=== PATIENT | female | born 1950 | race Caucasian/White ===

== ENCOUNTER 2019-09-28 09:02 | Outpatient (CLI) | payer MEDICARE, SELFPAY ==
--- NOTE | 2019-09-28 09:26 | MM_ITS ---
WS: [id number] LEFT DIGITAL MAMMOGRAPHY WITH CAD CLINICAL INFORMATION: HX OF BREAST CA;RT MASTECTOMY COMPARISON: September 25, 2018 and 6016 TECHNIQUE: 4 views of the left breast were obtained. FINDINGS: The left breast is composed of heterogeneous fibroglandular density tissue, which can limit the detec tion of small underlying mass lesions. Lucent centered calcifications. Stable postoperative changes l ower inner left breast. Ultrasound is pending. ULTRASOUND BREAST LEFT TECHNIQUE: Ultrasound left breast focused area of concern. CLINICAL INFORMATION: HX OF BREAST CA;RT MASTECTOMY COMPARISON: None. FINDINGS: Ultrasound left breast the 12:00 position. Dense breast tissue seen at the prior surgical scar site. No evidence of underlying pathologic mass or lesion. No lesions to target for biopsy. MM/[place] [id number] IMPRESSION: BI-RADS: 2-Benign FOLLOW UP: 1 Year Follow-up Recommend return to annual diagnostic mammography.
--- NOTE | 2019-09-28 09:52 | US_ITS ---
WS: [id number] LEFT DIGITAL MAMMOGRAPHY WITH CAD CLINICAL INFORMATION: HX OF BREAST CA;RT MASTECTOMY COMPARISON: September 25, 2018 and 6016 TECHNIQUE: 4 views of the left breast were obtained. FINDINGS: The left breast is composed of heterogeneous fibroglandular density tissue, which can limit the detec tion of small underlying mass lesions. Lucent centered calcifications. Stable postoperative changes l ower inner left breast. Ultrasound is pending. ULTRASOUND BREAST LEFT TECHNIQUE: Ultrasound left breast focused area of concern. CLINICAL INFORMATION: HX OF BREAST CA;RT MASTECTOMY COMPARISON: None. FINDINGS: Ultrasound left breast the 12:00 position. Dense breast tissue seen at the prior surgical scar site. No evidence of underlying pathologic mass or lesion. No lesions to target for biopsy. US/US breast LT limited* [id number] IMPRESSION: BI-RADS: 2-Benign FOLLOW UP: 1 Year Follow-up Recommend return to annual diagnostic mammography.
== END 2019-09-28 09:03 | disposition home or self-care (01) ==
LOC: ONCMED 09:06
PROVIDERS: Family Provider Electrodiagnostic Medicine; Visit Provider Internal Medicine Medical Oncology
DX: Z85.3 Personal history of malignant neoplasm of breast (principal); N63.20 Unspecified lump in the left breast, unspecified quadrant
CPT/HCPCS: 76642; 77065

== ENCOUNTER 2019-10-14 15:11 | Outpatient (CLI) | payer MEDICARE, SELFPAY ==
--- NOTE | 2019-10-14 15:18 | CT_ITS ---
WS: [id number] CT HEAD NONCONTRAST HISTORY: ACUTE NONINTRACTABLE HEADACHE TECHNIQUE: Contiguous axial imaging performed through the brain in 2.5 mm imaging. Bone and soft tiss ue windows. Sagittal and coronal reformats reviewed. All CT scans at [facility] use at le ast one of these dose optimization techniques: automated exposure control; mA and/or kV adjustment pe r patient size (includes targeted exams where dose is matched to clinical indication); or iterative r econstruction. DLP: 747.15 mGy.cm COMPARISON: MRI brain 06/08/2018 No acute intracranial hemorrhage, midline shift or mass effect. Mild atrophy and mild chronic ischemic disease. No sulcal effacement. Prior lacunar infarct anterior limb RIGHT internal capsule. Ventricles: Normal size with no hydrocephalus. No inferior displacement of the cerebellar tonsils. Paranasal sinuses: As visualized are clear. Mastoid air cells: Well pneumatized. Calvarium and scalp: Skull is intact with no soft tissue edema or swelling. CT/CT head wo con* [id number] IMPRESSION: 1. No acute intracranial hemorrhage or edema. 2. Mild atrophy and chronic ischemic disease.
== END 2019-10-14 15:12 | disposition home or self-care (01) ==
LOC: RAD 15:15
PROVIDERS: Family Provider Electrodiagnostic Medicine; PCP Nurse Practitioner Family; Visit Provider Nurse Practitioner Family
DX: I67.82 Cerebral ischemia (principal); R51 Headache
CPT/HCPCS: 70450

== ENCOUNTER 2020-02-01 12:13 | Outpatient (CLI) | payer MEDICARE, SELFPAY ==
[2020-02-01 12:56] LABS: Alanine Aminotransferase 21 U/L (0-33); Albumin Level 4.4 g/dL (3.5-5.2); Alkaline Phosphatase 61 IU/L (35-105); Anion Gap 16.9 (5-19); Aspartate Amino Transferase 20 U/L (0-32); Blood Urea Nitrogen 15 mg/dL (8-23); Calcium 9.7 mg/dL (8.5-10.5); Carbon Dioxide 24 mmol/L (22-29); Chloride 103 mmol/L (98-107); Globulin 3.1 g/dL (1.3-4.6); Glomerular Filtration Rate 62.1 mL/min (90-130); Glucose 113 mg/dL (65-115); Osmolality Calculated 287 mOsm/kg (285-295); Potassium 3.9 mmol/L (3.5-5.1); Sodium 140 mmol/L (136-145); Total Bilirubin 0.4 mg/dL (0.15-1.2); Total Protein 7.5 g/dL (6.6-8.7)
[2020-02-01 13:02] LABS: Basophils % 0.4 %; Eosinophils # 0.1 10^3/uL (0.0-0.8); Eosinophils % 1.1 %; Hematocrit 44.3 % (37.0-47.0); Hemoglobin 14.1 g/dL (11.5-15.3); Lymphocytes # 1.7 10^3/uL (0.8-4.8); Lymphocytes % 29.8 %; Mean Corpuscular HGB Conc 31.8 g/dL (30.0-36.0); Mean Corpuscular Hemoglobin 29.2 pg (28.0-34.0); Mean Corpuscular Volume 91.7 fL (81-99); Mean Platelet Volume 9.5 fL (7.4-10.4); Monocytes # 0.7 10^3/uL (0.2-0.9); Monocytes % 11.8 %; Neutrophils # 3.2 10^3/uL (1.8-7.7); Neutrophils % 56.7 %; Nucleated Red Blood Cells % 0 %; Platelet Count 236 10^3/cmm (130-400); Red Blood Count 4.83 10^6/uL (4.1-5.3); Red Cell Distribution Width 12.8 % (12.1-15.1); White Blood Count 5.7 10^3/uL (4.0-10.0)
--- NOTE | 2020-02-02 06:25 | ONC FU_ITS ---
Dr. Mc Patient Follow-Up Note Patient: Kim Carey Unit #: [id number]: 1950 Dicatated By: Booker Mc M.D.Date of Visit:February 01, 2020 Onc Med Follow-up/Prog Note Chief Complaint: Breast cancer. History of Present Illness: This is a 69 year-old woman with a bilateral ductal carcinoma in situ. She had presented in April 1999 with a large mass in the right breast. The initial biopsy showed grade 2-3/3 ductal carcinoma in situ measuring 2.0 x 1.0 cm. She then underwent right modified radical mastectomy. Pathology on the mastectomy showed residual DCIS measuring 4.0 x 3.0 cm with mixed cribriform, solid, and comedo patterns. There was tumor within 0.5 mm of the inked deep margin. There was no invasive cancer identified and there was no involvement in 9 axillary lymph nodes. She did receive postop chest wall radiation because of the close margin. She had a delayed TRAM flap reconstruction. She also took adjuvant Tamoxifen, but she stopped in January 2002 because of side effects. During followup there has been no evidence of recurrence. On her yearly left unilateral mammogram in November 2015, she was noted to have a group of punctate calcifications in the anterior third medial aspect of the breast. These appeared to have increased compared to previous mammograms. With additional views, the calcifications did appear to be suspicious, and biopsy was recommended. A stereotactic needle biopsy of the left breast on 01/06/2016 showed DCIS arising within fibrocystic change with atypical ductal hyperplasia. Microcalcifications were identified, but no invasive carcinoma was identified. On 02/02/2016 she underwent left breast lumpectomy under needle localization. Pathology showed fibrocystic changes with focal ductal hyperplasia and associated mixed adenosis. There was no invasive or intraductal carcinoma identified. The margins of resection were free of any tumor or significant atypia. She was referred to Dr. Andrea, and she subsequent underwent radiation to the left breast which she completed on 05/10/2016 to a total dose of 6000 cGy. She tolerated the treatment well. She has since then been followed on observation/expectant management. She has additional history of benign osteochondroma of the left iliac wing. This has just been monitored with observation and has shown no evidence of progression. Her other medical illnesses include hypertension, hyperlipidemia, COPD, GERD, and irritable bowel syndrome. She has had chronic fatigue and pain which is likely a combination of degenerative disease and fibromyalgia. She also has some chronic anxiety/depression. Her other surgeries include appendectomy, partial hysterectomy, and cervical spine fusion. She has a history of smoking 1 pack of cigarettes daily. Her family history is significant in that her father of melanoma and the brother also was treated for melanoma. There is no history of breast cancer in the family. She is seen for a scheduled visit. Her main complaint is that she has been having pain and swelling in her right knee and right leg. It started about a month ago, but within the past week the pain has gotten bad. She is also been having pain in the right side of her head and she felt pressure on her eyes. She was seen by Dr. Moeller and diagnosed with glaucoma. At that time she was also told that she had shingles. She does not have very much energy, but she is able to do light work. Her appetite is not good. She says she makes herself eat. Her weight is up a couple pounds. She has not had fever. She says she had chills last night. She has occasional hot flashes/sweating. She has had some pressure in the sinus area and she has had sore throat. She sometimes has difficulty swallowing. She does not complain of shortness of breath or cough. She has had some soreness in the left chest area just below the breast. She feels a knot. She occasionally has nausea. Bowel function has been okay. She says her urination has been a little bit slow. She also has pain in the lower back, which is chronic. She has been having numbness in the median nerve distribution of the right hand. Medications: AmLODIPine Besylate 1 Tablet (of 5 mg) Oral daily, Cipro 1 (500 mg) Tablet Oral PRN, Citalopram Hydrobromide 1 Tablet (of 10 mg) Oral at bedtime, Dicyclomine HCl 1 (10 mg) Capsule Oral four times a day, Fish Oil 1 (1200 mg) Capsule Oral daily, Flonase 1 spray(s) (of 50 mcg/act) Suspension Nasal PRN, Gabapentin 1 Capsule (of 100 mg) Oral t.i.d., Isosorbide Dinitrate 1 Tablet (of 30 mg) Oral daily, Levothyroxine Sodium 1 Tablet (of 50 mcg) Oral daily, Metoprolol Succinate ER 1 Tablet (of 50 mg) Tablet SR 24 HR Oral daily, Multivitamin Women 1 Tablet Oral daily, Nitroglycerin Tablet, sublingual Sublingual PRN, Omeprazole 1 (20 mg) Capsule Delayed Release Oral b.i.d., Simvastatin 1 (40 mg) Tablet Oral at bedtime, Ventolin HFA 1 (108 (90 base) mcg/act) Aerosol, solution Inhalation PRN Allergies: Sulfamethoxazole-Trimethoprim Review of Systems: Constitutional - Her energy is low. She does light work in and around the house. Her appetite is good and weight is up a few pounds. No fever or chills. She has hot flashes with sweating. ECOG score is 1, ENMT - She is having sinus congestion/drainage. No mouth sores. Her throat is sore. No difficulty swallowing, Hematologic/Lymphatic - No abnormal bruising or bleeding, Respiratory - No shortness of breath. No cough. No pleuritic pain or hemoptysis, Cardiovascular - She's had some anginal pain today. No palpitations, Gastrointestinal - She's had a new episodes of nausea. No vomiting. No heartburn or acid reflux. No diarrhea or constipation. No blood in the stool or black stools, Genitourinary (F) - No dysuria or hematuria. No urinary frequency. No urgency or incontinence. She has some hesitancy, Musculoskeletal - She is having significant right posterior knee pain, which is new. She also has some lower back pain. She is having frequent cramping in her legs, Integumentary - She recently had a skin spots on her right forehead and scalp, and she states that she was told she had shingles, Neurologic - She has been having headaches. She has occasional dizziness. She has numbness in her right thumb and in her index and middle fingers, Psychiatric - She recently lost her brother so her anxiety and depression is not well controlled with her current dose of citalopram. She does not sleep well. Vital Signs: Performed on February 01, 2020 13:53 Height - 62.00 in Weight - 148.2 lbs (HIGH) BSA - 1.68 sq.m BMI - 27.11 Temperature - 98.6 F Pulse - 73 /min Respiration - 18 /min BP - 162/84 mm(hg) (HIGH) O2 Sat - 98 % Pain - 10 Physical Examination: Constitutional - She looks pretty good generally, Eyes - Sclerae nonicteric. Conjunctivae clear, ENMT - There are no lesions noted in the oral cavity, Hematologic/Lymphatic - No cervical, clavicular, or axillary adenopathy, Respiratory - Lungs are clear, Cardiovascular - Heart rhythm is regular. There is a II/ systolic murmur. There is no gallop or rub noted, Abdomen - Soft and nontender. Liver and spleen are not enlarged. There is no abdominal mass or ascites noted and no inguinal adenopathy, Extremities - No edema. There is no palpable abnormality in the right popliteal area or in the right calf, Integumentary - There is no skin eruption. There are no suspicious skin lesions noted, Neurologic - There are no focal neurologic deficits noted. Lab/Imaging: Test performed on February 01, 2020 12:20 Sodium 140 mmol/L Potassium 3.9 mmol/L Chloride 103 mmol/L CO2 24 mmol/L Anion Gap 16.9 BUN 15 mg/dL Creatinine 0.9 mg/dL Cr Clearance (Est) 62.61 mL/min eGFR 62.1 mL/min Glucose 113 mg/dL Calcium 9.7 mg/dL Protein, Total 7.5 g/dL Albumin 4.4 g/dL Globulin 3.1 g/dL Bilirubin, Total 0.4 mg/dL ALT (SGPT) 21 U/L AST (SGOT) 20 U/L Alkaline Phosphatase 61 IU/L WBC 5.7 10 3/uL RBC 4.83 10 6/uL HGB 14.1 g/dL HCT 44.3 % MCV 91.7 fL MCH 29.2 pg MCHC 31.8 g/dL RDW 12.8 % Platelet Count 236 10 3/cmm MPV 9.5 fL Neutrophils 3.2 10 3/uL Lymphocytes 1.7 10 3/uL Monocytes 0.7 10 3/uL Eosinophils 0.1 10 3/uL Basophils 0.0 10 3/uL Neutrophil % 56.7 % Lymphocyte % 29.8 % Monocyte % 11.8 % Eosinophil % 1.1 % Basophils % 0.4 % Impression: 1. Ductal carcinoma in situ of the left breast. This appears to been a small, mammographically detected lesion. It was evident only in the initial needle biopsy specimen. There was no residual carcinoma identified in the subsequent lumpectomy on 02/02/2016. 2. She was given radiation to the left breast, completed on 05/10/2016 to a total dose of 6000 cGy. 3. She has a history of having undergone right modified radical mastectomy and postoperative radiation in 1998 for a locally advanced ductal carcinoma in situ of the right breast. She subsequently underwent delayed TRAM flap reconstruction, and she also did receive an abbreviated course of adjuvant hormonal therapy with tamoxifen, which she stopped in January 2002 due to side effects. There has been no evidence of recurrence. 4. She has radiographic evidence of benign osteochondroma of the left iliac wing. It has been stable on follow-up. Her other medical illnesses include: 5. Hypertension. 6. Hyperlipidemia. 7. GERD. 8. Irritable bowel syndrome. 9. COPD. 10. Degenerative arthritis. 11. Chronic fatigue and chronic pain felt to be consistent with fibromyalgia. 12. Anxiety/depression. 11. Nicotine dependence (cigarettes). During follow-up she has continued to have multiple complaints, the most significant being fatigue and musculoskeletal pain. Her main complaint recently has been pain in the right popliteal area and right calf. She has also been diagnosed with shingles, but I do not see any residual skin lesions to confirm that. She has developed numbness in the median nerve distribution on the right. She also has been having more anxiety/depression. There appears to be no evidence, though, of recurrence of her breast cancer. Plan: She remains on observation/expectant management for the breast cancer. She will be given a prescription for ropinirole 0.25 mg at bedtime for the leg cramps. She will increase citalopram to 20 mg daily. She will have further evaluation for the right knee/leg pain if that persists. In the meantime, she will be scheduled for nerve conduction studies for the right arm/hand. I will see her again in 6 months, or sooner as needed. Signed By: Booker Mc M.D. <<Signature on File>>
== END 2020-02-01 12:14 | disposition home or self-care (01) ==
PROVIDERS: PCP Nurse Practitioner Family; Visit Provider Internal Medicine Medical Oncology
DX: Z08 Encounter for follow-up examination after completed treatment for malignant neoplasm (principal); Z86.000 Personal history of in-situ neoplasm of breast
CPT/HCPCS: 36415; 80053; 85025; 99214

== ENCOUNTER → 2020-02-08 11:54 | Outpatient (BNVA) | payer MEDICARE, SELFPAY | PROVIDERS: PCP Nurse Practitioner Family; Visit Provider Specialist | DX: G56.01 Carpal tunnel syndrome, right upper limb (principal) | CPT/HCPCS: 95908 ==

== ENCOUNTER → 2020-06-03 09:00 | Outpatient (BNVA) | payer MEDICARE, SELFPAY | PROVIDERS: PCP Nurse Practitioner Family; Visit Provider Internal Medicine | DX: Z11.59 Encounter for screening for other viral diseases (principal) | CPT/HCPCS: 87635 ==

== ENCOUNTER 2020-06-09 08:32 | Day surgery (SDC) | payer MEDICARE, SELFPAY ==
[2020-06-07 07:51] VITALS: BMI 27.8
[2020-06-09 08:47] VITALS: BP 142/85; PULSE 70; RESP 18; TEMP 36.8; O2SAT 97
[2020-06-09] MEDS: sodium chloride 0.9% 1,000 ML 30 ML IV (08:57)
--- NOTE | 2020-06-09 09:00 | P.ANESASSM_ITS ---
Pre-Anesthetic Assessment Pre-Anesthetic Assessment: Height/Weight: Height 1.55 m Weight 66.678 kg Temp Pulse Resp BP Pulse Ox 98.3 F 70 18 142/85 97 06/09/20 08:47 06/09/20 08:47 06/09/20 08:47 06/09/20 08:47 06/09/20 08:47 Preop Diagnosis: Abdominal pain Proposed Procedure: Operation Date: 06/09/20 09:30 Proposed Procedures p EGD/colon 58621 [id number] R14.0 Z86.010(Not Applicable) - Paxton Laboy MD s Colonoscopy(Not Applicable) - Paxton Laboy MD Familial anesthetic complications: None Was Beta Jus taken within 24 hours: Yes Last intake: Intake Last Liquid Date 06/08/20 Last Liquid Time 21:00 Last Solid Date 06/07/20 Last Solid Time 21:00 Social: Social History: Tobacco Exam: Pre-Anes Outpt Exam: alert, oriented x 3, clear to auscultation bilaterally and regular rate & rhythm Airway: Cervical ROM: WNL (fused vertebrae ) MP: 4 Dentition: Chipped and False Pulmonary: Pulmonary: COPD CV/HEM: CV/HEM: Angina (Stable), CAD and HTN Comments: No further chest pains after increasing nitrates to BID use Metabolic: Metabolic: Hyperlipidemia and Thyroid Musc/skel: Musc/skel: Lower Back Pain Anesthetic Plan: ASA status: 3 Anesthesia: MAC Meds/Allergies Current Medications: Current Medications Generic Name Dose Route Start Last Admin Trade Name Freq PRN Reason Stop Dose Admin Sodium Chloride 1,000 mls @ 30 ml s/hr 06/09/20 08:45 06/09/20 08:57 Sodium Chloride 0.9% IV 06/10/20 08:44 30 mls/hr .Q24H ANDIE Administration PFSH Anesthesia PFSH: Medical History (Updated 05/24/20 @ 17:09 by Paxton Laboy MD) Atherosclerotic heart disease of [place] coronary artery with other forms of angina pectoris Benign essential HTN Dyslipidemia History of chronic diarrhea History of shingles HTN (hypertension) Hx of colonic polyps Hx of migraine headaches Hx of shortness of breath Hypothyroid Recurrent UTI Surgical History History of partial hysterectomy History of reconstruction of right breast Hx of appendectomy Hx of colonoscopy Hx of fusion of cervical spine Hx of neck surgery Hx of total mastectomy of right breast Family History Son CAD (coronary artery disease) Hyperlipidemia Hypertension Sister Cancer Diabetes Brother Cancer Hyperlipidemia Lung disease Father Cancer Daughter Hyperlipidemia Hypertension Mother Hyperlipidemia Denies family history of Clotting disorder Dementia Psychiatric illness Chronic kidney disease (CKD) Suicide Anesthesia complication Bleeding disorder Stroke Social History Smoking and tobacco status: current every day smoker Quit status (tobacco): has tried quititng Second hand smoke exposure: Yes Smoking risk assessment/counseling performed?: Yes Alcohol intake: never Data Anesthesia Cardiac Studies: No Data to Display
--- NOTE | 2020-06-09 09:47 | W.PM.OPSUD ---
Surgery/Procedure H&P Update DATE OF PROCEDURE: June 09, 2020 DATE H&P PERFORMED: 05/24/20 H&P UPDATE INFORMATION: I have reviewed H&P completed within last 30 days, I have examined patient prior to procedure and No changes to prior documentation PREOP DIAGNOSIS: Abdominal pain PLANNED PROCEDURE: Operation Date: 06/09/20 09:30 Proposed Procedures p EGD/colon 32496 [id number] R14.0 Z86.010(Not Applicable) - Paxton Laboy MD s Colonoscopy(Not Applicable) - Paxton Laboy MD
[2020-06-09 10:34] VITALS: BP 160/98; PULSE 104; RESP 16; TEMP 36.6; O2SAT 96
--- NOTE | 2020-06-09 10:34 | ANE.PACU2 ---
Inpatient post-anesthesia follow up: Airway intact: Yes Vital signs: Temperature 98.3 F Pulse Rate 70 Respiratory Rate 18 Blood Pressure 142/85 Pulse Oximetry 97 Oxygen Delivery Me thod Room Air Oxygen Flow Rate Fraction of Inspir ed Oxygen Hydration adequate: Yes Nausea and vomiting: No Pain level: 1 Mental status: Baseline
[2020-06-09 10:57] VITALS: BP 176/97; PULSE 105; RESP 18; O2SAT 98
== END 2020-06-09 11:00 | disposition home or self-care (01) ==
PROVIDERS: PCP Nurse Practitioner Family; Visit Provider Surgery
PROC: 0DJ08ZZ Inspection of Upper Intestinal Tract, Via Natural or Artificial Opening Endoscopic (ICD-10-PCS; CPT 43235; principal; 2020-06-09 09:30)
PROC: 0DJD8ZZ Inspection of Lower Intestinal Tract, Via Natural or Artificial Opening Endoscopic (ICD-10-PCS; CPT 45378; 2020-06-09 09:30)
DX: D12.2 Benign neoplasm of ascending colon (principal); D12.0 Benign neoplasm of cecum; K57.30 Diverticulosis of large intestine without perforation or abscess without bleeding; R14.0 Abdominal distension (gaseous); R10.9 Unspecified abdominal pain; J44.9 Chronic obstructive pulmonary disease, unspecified; I25.118 Atherosclerotic heart disease of native coronary artery with other forms of angina pectoris; I10 Essential (primary) hypertension; E78.5 Hyperlipidemia, unspecified; E03.9 Hypothyroidism, unspecified; F17.200 Nicotine dependence, unspecified, uncomplicated; Z88.2 Allergy status to sulfonamides
CPT/HCPCS: 12345; 43235; 45380; 88305; J7030

== ENCOUNTER 2020-08-11 13:17 | Outpatient (CLI) | payer MEDICARE, SELFPAY ==
[2020-08-11 13:56] LABS: Basophils % 0.4 %; Eosinophils # 0.1 10^3/uL (0.0-0.8); Eosinophils % 1.1 %; Hematocrit 43.1 % (37.0-47.0); Lymphocytes # 1.8 10^3/uL (0.8-4.8); Lymphocytes % 25.2 %; Mean Corpuscular HGB Conc 32.5 g/dL (30.0-36.0); Mean Corpuscular Volume 92.5 fL (81-99); Mean Platelet Volume 9.8 fL (7.4-10.4); Monocytes # 0.8 10^3/uL (0.2-0.9); Monocytes % 11.5 %; Neutrophils # 4.42 10^3/uL (1.8-7.7); Neutrophils % 61.5 %; Nucleated Red Blood Cells % 0 %; Platelet Count 265 10^3/cmm (130-400); Red Blood Count 4.66 10^6/uL (4.1-5.3); Red Cell Distribution Width 12.9 % (12.1-15.1); White Blood Count 7.2 10^3/uL (4.0-10.0)
[2020-08-11 14:13] LABS: Alanine Aminotransferase 24 U/L (0-33); Albumin Level 4.5 g/dL (3.5-5.2); Alkaline Phosphatase 76 IU/L (35-105); Anion Gap 14.5 (5-19); Aspartate Amino Transferase 22 U/L (0-32); Blood Urea Nitrogen 16 mg/dL (8-23); Calcium 9.3 mg/dL (8.5-10.5); Carbon Dioxide 24 mmol/L (22-29); Chloride 103 mmol/L (98-107); Globulin 2.7 g/dL (1.3-4.6); Glomerular Filtration Rate 70.9 mL/min (90-130); Glucose 84 mg/dL (65-115); Osmolality Calculated 286 mOsm/kg (285-295); Potassium 3.5 mmol/L (3.5-5.1); Sodium 138 mmol/L (136-145); Total Bilirubin 0.4 mg/dL (0.15-1.2); Total Protein 7.2 g/dL (6.6-8.7)
--- NOTE | 2020-08-14 13:45 | ONC FU_ITS ---
Dr. Mc Patient Follow-Up Note Patient: Kim Carey Unit #: [id number]: 1950 Dicatated By: Booker Mc M.D.Date of Visit:Aug 11, 2020 Onc Med Follow-up/Prog Note Chief Complaint: Breast cancer. History of Present Illness: This is a 70 year-old woman with a bilateral ductal carcinoma in situ. She had presented in April 1999 with a large mass in the right breast. The initial biopsy showed grade 2-3/3 ductal carcinoma in situ measuring 2.0 x 1.0 cm. She then underwent right modified radical mastectomy. Pathology on the mastectomy showed residual DCIS measuring 4.0 x 3.0 cm with mixed cribriform, solid, and comedo patterns. There was tumor within 0.5 mm of the inked deep margin. There was no invasive cancer identified and there was no involvement in 9 axillary lymph nodes. She did receive postop chest wall radiation because of the close margin. She had a delayed TRAM flap reconstruction. She also took adjuvant Tamoxifen, but she stopped in January 2002 because of side effects. During followup there has been no evidence of recurrence. On her yearly left unilateral mammogram in November 2015, she was noted to have a group of punctate calcifications in the anterior third medial aspect of the breast. These appeared to have increased compared to previous mammograms. With additional views, the calcifications did appear to be suspicious, and biopsy was recommended. A stereotactic needle biopsy of the left breast on 01/06/2016 showed DCIS arising within fibrocystic change with atypical ductal hyperplasia. Microcalcifications were identified, but no invasive carcinoma was identified. On 02/02/2016 she underwent left breast lumpectomy under needle localization. Pathology showed fibrocystic changes with focal ductal hyperplasia and associated mixed adenosis. There was no invasive or intraductal carcinoma identified. The margins of resection were free of any tumor or significant atypia. She was referred to Dr. Andrea, and she subsequent underwent radiation to the left breast which she completed on 05/10/2016 to a total dose of 6000 cGy. She tolerated the treatment well. She has since then been followed on observation/expectant management. She has additional history of benign osteochondroma of the left iliac wing. This has just been monitored with observation and has shown no evidence of progression. Her other medical illnesses include hypertension, hyperlipidemia, COPD, GERD, and irritable bowel syndrome. She has had chronic fatigue and pain which is likely a combination of degenerative disease and fibromyalgia. She also has some chronic anxiety/depression. Her other surgeries include appendectomy, partial hysterectomy, and cervical spine fusion. She has a history of smoking 1 pack of cigarettes daily. Her family history is significant in that her father of melanoma and the brother also was treated for melanoma. There is no history of breast cancer in the family. She is seen for a scheduled visit. She complains that she has no energy and that she makes herself go. She is still able to do light work. ECOG score is 1. Appetite is not good, but her weight is stable. She says she feels like she has fever. She sometimes has chills. She does not have hot flashes or night sweating. She has short of breath with more strenuous activity. She has cough, which she attributes to allergies. She has been having some chest pain. She was placed on a heart monitor for 2 or 3 weeks. She has been having postprandial nausea, occasionally with vomiting. She has been having occasional episodes of cramping in the lower abdomen. She did have a colonoscopy in February which apparently showed a couple of small polyps. Bladder function has been pretty good. She has pain in her lower back, which she says is getting worse. She does not complain of headache. She is having pain and numbness in her right hand and forearm. Her nerve conduction studies did show evidence of a carpal tunnel syndrome. Medications: AmLODIPine Besylate 1 Tablet (of 2.5 mg) Oral daily, Cipro 1 (500 mg) Tablet Oral PRN, Dicyclomine HCl 1 (10 mg) Capsule Oral four times a day, Fish Oil 1 (1200 mg) Capsule Oral daily, Flonase 1 spray(s) (of 50 mcg/act) Suspension Nasal PRN, Gabapentin 1 Capsule (of 100 mg) Oral t.i.d., Isosorbide Dinitrate 1 Tablet (of 30 mg) Oral daily, Levothyroxine Sodium 1 Tablet (of 50 mcg) Oral daily, Metoprolol Succinate ER 1 Tablet (of 50 mg) Tablet SR 24 HR Oral daily, Multivitamin Women 1 Tablet Oral daily, Nitroglycerin Tablet, sublingual Sublingual PRN, Omeprazole 1 (20 mg) Capsule Delayed Release Oral b.i.d., Simvastatin 1 (40 mg) Tablet Oral at bedtime, Ventolin HFA 1 (108 (90 base) mcg/act) Aerosol, solution Inhalation PRN Allergies: Sulfamethoxazole-Trimethoprim Review of Systems: Constitutional - She has no energy. She says she makes herself go. She still does her housework. Her appetite is not good. Her weight is up a little. She says she feels like she has fever at times and she sometimes has chills. She has no night sweating. ECOG score is 1, Eyes - She is scheduled to have cataract surgery on the left eye next week, ENMT - She has sinus congestion/drainage. No mouth sores. No sore throat or difficulty swallowing, Hematologic/Lymphatic - She bruises pretty easily, Breasts - She has been having some pain in the left breast/axilla, Respiratory - She has shortness of breath with more strenuous activity. She has some cough, which she attributes to allergies. No pleuritic pain or hemoptysis, Cardiovascular - She has had some chest pain. She wore a heart monitor for several weeks, and she apparently did not have any significant arrhythmia, Gastrointestinal - She has occasional nausea/vomiting after eating. She has lower abdominal pain/cramping, and she has constipation. She had a colonoscopy in February. No blood in the stool or black stools, Genitourinary (F) - No dysuria or hematuria. No urinary frequency. No urgency or incontinence, Musculoskeletal - She has lower back pain, which is getting worse, Integumentary - No skin rash, Neurologic - No headache. She has dizziness. She has numbness/tingling and pain in her right forearm and hand. No numbness or tingling. No other focal neurologic symptoms, Psychiatric - She has some anxiety/depression. She has difficulty sleeping, in part because her right hand wakes her up. Vital Signs: Performed on Aug 11, 2020 14:47 Height - 62.00 in Weight - 148.4 lbs (HIGH) BSA - 1.68 sq.m BMI - 27.14 Temperature - 98.2 F (LOW) Pulse - 72 /min Respiration - 20 /min BP - 134/83 mm(hg) O2 Sat - 8 % (LOW) Pain - 9 Physical Examination: Constitutional - She looks pretty good generally, Eyes - Sclerae nonicteric. Conjunctivae clear, ENMT - There are no lesions noted in the oral cavity, Hematologic/Lymphatic - No cervical or clavicular adenopathy, Respiratory - Lungs are clear, Cardiovascular - Heart rhythm is regular. There is a II/ systolic murmur. There is no gallop or rub noted, Breasts - There is nodularity in the superior aspect of the right breast reconstruction. There are no chest wall lesions noted. There is mild induration in the left breast. There is no mass palpable. There is no axillary adenopathy, Abdomen - Soft. There is mild tenderness in the lower abdomen. Liver and spleen are not enlarged. There is no abdominal mass or ascites noted and no inguinal adenopathy, Extremities - No edema. Pedal pulses are palpable bilaterally, Neurologic - There are no focal neurologic deficits noted. Lab/Imaging: Test performed on Aug 11, 2020 13:33 Sodium 138 mmol/L Potassium 3.5 mmol/L Chloride 103 mmol/L CO2 24 mmol/L Anion Gap 14.5 BUN 16 mg/dL Creatinine 0.8 mg/dL Cr Clearance (Est) 69.53 mL/min eGFR 70.9 mL/min Glucose 84 mg/dL Osmolality - Calculated 286 mOsm/kg Calcium 9.3 mg/dL Protein, Total 7.2 g/dL Albumin 4.5 g/dL Globulin 2.7 g/dL Bilirubin, Total 0.4 mg/dL ALT (SGPT) 24 U/L AST (SGOT) 22 U/L Alkaline Phosphatase 76 IU/L WBC 7.2 10 3/uL RBC 4.66 10 6/uL HGB 14.0 g/dL HCT 43.1 % MCV 92.5 fL MCH 30.0 pg MCHC 32.5 g/dL RDW 12.9 % Platelet Count 265 10 3/cmm MPV 9.8 fL Neutrophils 4.42 10 3/uL Lymphocytes 1.8 10 3/uL Monocytes 0.8 10 3/uL Eosinophils 0.1 10 3/uL Basophils 0.0 10 3/uL Neutrophil % 61.5 % Lymphocyte % 25.2 % Monocyte % 11.5 % Eosinophil % 1.1 % Basophils % 0.4 % NRBC % 0 % Impression: 1. Ductal carcinoma in situ of the left breast. This appears to been a small, mammographically detected lesion. It was evident only in the initial needle biopsy specimen. There was no residual carcinoma identified in the subsequent lumpectomy on 02/02/2016. 2. She was given radiation to the left breast, completed on 05/10/2016 to a total dose of 6000 cGy. 3. She has a history of having undergone right modified radical mastectomy and postoperative radiation in 1998 for a locally advanced ductal carcinoma in situ of the right breast. She subsequently underwent delayed TRAM flap reconstruction, and she also did receive an abbreviated course of adjuvant hormonal therapy with tamoxifen, which she stopped in January 2002 due to side effects. There has been no evidence of recurrence. 4. She has radiographic evidence of benign osteochondroma of the left iliac wing. It has been stable on follow-up. Her other medical illnesses include: 5. Hypertension. 6. Hyperlipidemia. 7. GERD. 8. Irritable bowel syndrome. 9. COPD. 10. Degenerative arthritis. 11. Chronic fatigue and chronic pain felt to be consistent with fibromyalgia. 12. Anxiety/depression. 11. Nicotine dependence (cigarettes). During follow-up she has continued to have multiple complaints, the most significant being fatigue and musculoskeletal pain. As of her follow-up visit in January 2020 she had developed numbness and pain in the median nerve distribution on the right, and her nerve conduction studies did show evidence of carpal tunnel syndrome. More recently, she has reported loss of appetite and she has been having nausea with occasional postprandial vomiting. A cause for that has not been determined. There has been no evidence, though, recurrence of her breast cancer. Plan: She remains on observation/expectant management for the breast cancer. She will be scheduled for a follow-up visit in 6 months. In the meantime, I will arrange for a referral for management of her carpal tunnel syndrome. In addition, I will schedule her for gallbladder ultrasound. She will have further evaluation for the GI symptoms as indicated. Signed By: Booker Mc M.D. <<Signature on File>>
== END 2020-08-11 13:18 | disposition home or self-care (01) ==
LOC: ONCMED 13:24
PROVIDERS: PCP Nurse Practitioner Family; Visit Provider Internal Medicine Medical Oncology
DX: Z08 Encounter for follow-up examination after completed treatment for malignant neoplasm (principal); Z85.3 Personal history of malignant neoplasm of breast; G56.01 Carpal tunnel syndrome, right upper limb; R11.2 Nausea with vomiting, unspecified; R63.0 Anorexia
CPT/HCPCS: 80053; 85025; 99214

== ENCOUNTER 2020-08-23 07:28 | Outpatient (CLI) | payer MEDICARE, SELFPAY ==
--- NOTE | 2020-08-23 07:39 | US_ITS ---
WS: [id number] ULTRASOUND ABDOMEN LIMITED CLINICAL INFORMATION: ABD PAIN COMPARISON: CT and ultrasound FINDINGS: Liver Size: Normal. Craniocaudal length: 15.5 cm. Echogenicity: Normal. Surface nodularity: None. Mass (size and location): None. Bile ducts Intrahepatic ducts: Normal. Common bile duct diameter: 0.4 cm. Gallbladder Normal. Gallstones: None. Gallbladder sludge: None. Gallbladder wall thickening: None. Pericholecystic fluid: None. Sonographic Alexandre sign: Absent. Pancreas Normal as visualized. Right kidney: Slightly complex cyst upper pole measuring 5.4 x 4.8 cm with a few septations. Smaller right upper pole cyst measuring 2.1 x 2.2 cm Hydronephrosis: None. Size: 10.9 cm x 5.4 cm x 5.5 cm. Abdominal aorta and IVC Visualized portions are normal. Ascites: None. US/US gall bladder [id number] IMPRESSION: 1. No hydronephrosis in right kidney. Large upper pole renal cyst measuring 5 to 6 cm with a few internal septations and a small amount of internal debris. T his appears stable since the CT 2018 and ultrasound . Recommend contin ued annual surveillance 2. Normal gallbladder and liver.
== END 2020-08-23 07:29 | disposition home or self-care (01) ==
PROVIDERS: PCP Nurse Practitioner Family; Visit Provider Internal Medicine Medical Oncology
DX: R10.9 Unspecified abdominal pain (principal); R11.2 Nausea with vomiting, unspecified
CPT/HCPCS: 76705

== ENCOUNTER 2021-01-04 10:52 | Outpatient (CLI) | payer MEDICARE, SELFPAY ==
--- NOTE | 2021-01-04 11:00 | MM_ITS ---
WS: [id number] DIAGNOSTIC LEFT DIGITAL MAMMOGRAM WITH CAD HISTORY: HX OF BREAST CA;RT MAST COMPARISON: 09/28/2019, 09/25/2018 Technique: CC, MLO and ML views. Breast composition: The breasts are heterogeneously dense, which may obscure small masses. Scattered benign calcifications are similar to prior studies. No new calcification. Biopsy clip in the medial LEFT breast is identified. No interval abnormalities. MM/[place] [id number] IMPRESSION: BI-RADS: 2-Benign FOLLOW UP: 1 Year Follow-up
== END 2021-01-04 10:53 | disposition home or self-care (01) ==
LOC: RADSHAW 10:54
PROVIDERS: PCP Nurse Practitioner Family; Visit Provider Nurse Practitioner Family
DX: Z85.3 Personal history of malignant neoplasm of breast (principal); Z90.11 Acquired absence of right breast and nipple
CPT/HCPCS: 77065

== ENCOUNTER 2021-02-07 07:52 | Outpatient (CLI) | payer MEDICARE, SELFPAY ==
[2021-02-07 08:14] VITALS: BMI 27.9
--- NOTE | 2021-02-07 08:14 | ECG_ITS ---
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 Interpretive Statements NAME OF STUDY: EXERCISE SESTAMIBI STRESS TEST INDICATION: Shortness of Breath, PROCEDURE: The baseline electrocardiogram showed normal sinus rhythm with a poor R wave progression. Generalized low voltage complexes. At the baseline, the patient's blood pressure was 142/88 mm Hg with a heart rate of 87. The patient exercised for 7 minutes and 44 seconds on a standard Abisai protocol. Patient attained a maximum heart rate of 142 beats per minute( 94 % of the maximum predicted heart rate) with a blood pressure at the peak exercise of 205/69 mm Hg. The EKG at the peak exercise revealed no significant changes. Patient did not have any chest pain or any significant arrhythmis with the exercise Sestamibi was injected 1 minute prior to the peak exercise During the recovery phase, there were no new changes. Blood pressure at the end of the recovery phase was 161/88 mm Hg with a heart rate of 83 per minute. CONCLUSION: 1. No significant EKG changes with the [treadmill exercise 2. No exercise-induced chest pain or cardiac arrhythmia. Hypertensive response to exercise 3. Fair exercise tolerance, attained a maximum of 10.2 METs 4. Sestamibi/Sestamibi perfusion results pending; see separate report. Electronically Signed On 02-23-2021 20:01:43 CDT by Digna Jameson M.D. [id number]
--- NOTE | 2021-02-07 08:14 | NMCV_ITS ---
NM joseline perf SPECT r/s* [id number] Kim Carey Age: 70 Gender: F : 1950 Exam Date: 02/07/2021 08:14 Ordering Phys: Digna Jameson MD ([email or web address]) Technologist: JOY Cummins Exam Location: [facility] Indications: SOB STRESS TEST Please see separate stress test report in [facility] for full findings IMAGE PROTOCOL Rest/Stress 1 Radiopharmaceutical Dose (mCi) Administration Site Administered by Rest: Tc-99m 10.7 IV JOY Michael Sestamibi Stress:Tc-99m 32.7 IV JOY Cummins Sestamigolden Rest: 07-Feb-2021 60 Discovery 630 Stress: 07-Feb-2021 15 Discovery 630 Radiopharmaceutical was injected at 90 % maximum heart rate. Images obtained in supine and prone position. SPECT RESULTS Technical Quality: Excellent Raw Data Analysis: Normal Image Corrections: No attenuation or motion correction applied Summed Stress Score: 0 Summed Rest Score: 0 Summed Difference Score: 0 PERFUSION FINDINGS Uniform myocardial tracer uptake with no significant perfusion of abnormalities FUNCTIONAL RESULTS (calculated via Gated SPECT) Stress Image LV EF (%): 86 Stress EDV (mL):58 TID: 0.88 Stress ESV (mL):8 FUNCTIONAL FINDINGS: No segmental wall motion normalities. IMPRESSIONS 1. Unremarkable myocardial perfusion imaging. 2. Segmental wall motion analysis revealing no gross wall motion normalities. 3. Normal LV ejection fraction of 86%. 4. Normal LV volume No significant coronary ischemia, based on the above findings. No similar previous studies are available for comparison Dr Digna Jameson MD FAC (Electronically Signed) Final Date: 08 Feb 2021 00:45 S
[2021-02-07 10:16] VITALS: BP 161/88; PULSE 86
== END 2021-02-07 07:53 | disposition home or self-care (01) ==
LOC: CDL 07:54
PROVIDERS: PCP Nurse Practitioner Family; Visit Provider Internal Medicine Cardiovascular Disease
DX: R06.02 Shortness of breath (principal)
CPT/HCPCS: 78452; 93017; A9500

== ENCOUNTER 2021-02-08 13:27 | Outpatient (CLI) | payer MEDICARE, SELFPAY ==
[2021-02-08 14:24] LABS: Basophils % 0.3 %; Eosinophils # 0.1 10^3/uL (0.0-0.8); Hemoglobin 14.2 g/dL (11.5-15.3); Lymphocytes # 1.5 10^3/uL (0.8-4.8); Lymphocytes % 24.5 %; Mean Corpuscular HGB Conc 32.3 g/dL (30.0-36.0); Mean Corpuscular Hemoglobin 29.9 pg (28.0-34.0); Mean Corpuscular Volume 92.6 fL (81-99); Mean Platelet Volume 10.3 fL (7.4-10.4); Monocytes # 0.7 10^3/uL (0.2-0.9); Monocytes % 12.2 %; Neutrophils # 3.64 10^3/uL (1.8-7.7); Neutrophils % 60.7 %; Nucleated Red Blood Cells % 0 %; Platelet Count 223 10^3/cmm (130-400); Red Blood Count 4.75 10^6/uL (4.1-5.3); Red Cell Distribution Width 13.2 % (12.1-15.1)
[2021-02-08 15:06] LABS: Alanine Aminotransferase 24 U/L (0-33); Albumin Level 4.2 g/dL (3.5-5.2); Alkaline Phosphatase 68 IU/L (35-105); Anion Gap 14.4 (5-19); Aspartate Amino Transferase 20 U/L (0-32); Blood Urea Nitrogen 15 mg/dL (8-23); Calcium 8.8 mg/dL (8.5-10.5); Carbon Dioxide 26 mmol/L (22-29); Chloride 104 mmol/L (98-107); Globulin 2.8 g/dL (1.3-4.6); Glomerular Filtration Rate 70.9 mL/min (90-130); Glucose 131 mg/dL (65-115); Osmolality Calculated 295 mOsm/kg (285-295); Potassium 3.4 mmol/L (3.5-5.1); Sodium 141 mmol/L (136-145); Total Bilirubin 0.5 mg/dL (0.15-1.2)
--- NOTE | 2021-02-09 07:36 | ONC FU_ITS ---
Dr. Mc Patient Follow-Up Note Patient: Kim Carey Unit #: [id number]: 1950 Dicatated By: Booker Mc M.D.Date of Visit:February 08, 2021 Onc Med Follow-up/Prog Note Chief Complaint: Breast cancer. History of Present Illness: This is a 70 year-old woman with a bilateral ductal carcinoma in situ. She had presented in April 1999 with a large mass in the right breast. The initial biopsy showed grade 2-3/3 ductal carcinoma in situ measuring 2.0 x 1.0 cm. She then underwent right modified radical mastectomy. Pathology on the mastectomy showed residual DCIS measuring 4.0 x 3.0 cm with mixed cribriform, solid, and comedo patterns. There was tumor within 0.5 mm of the inked deep margin. There was no invasive cancer identified and there was no involvement in 9 axillary lymph nodes. She did receive postop chest wall radiation because of the close margin. She had a delayed TRAM flap reconstruction. She also took adjuvant Tamoxifen, but she stopped in January 2002 because of side effects. During followup there has been no evidence of recurrence. On her yearly left unilateral mammogram in November 2015, she was noted to have a group of punctate calcifications in the anterior third medial aspect of the breast. These appeared to have increased compared to previous mammograms. With additional views, the calcifications did appear to be suspicious, and biopsy was recommended. A stereotactic needle biopsy of the left breast on 01/06/2016 showed DCIS arising within fibrocystic change with atypical ductal hyperplasia. Microcalcifications were identified, but no invasive carcinoma was identified. On 02/02/2016 she underwent left breast lumpectomy under needle localization. Pathology showed fibrocystic changes with focal ductal hyperplasia and associated mixed adenosis. There was no invasive or intraductal carcinoma identified. The margins of resection were free of any tumor or significant atypia. She was referred to Dr. Andrea, and she subsequent underwent radiation to the left breast which she completed on 05/10/2016 to a total dose of 6000 cGy. She tolerated the treatment well. She has since then been followed on observation/expectant management. She has additional history of benign osteochondroma of the left iliac wing. This has just been monitored with observation and has shown no evidence of progression. Her other medical illnesses include hypertension, hyperlipidemia, COPD, GERD, and irritable bowel syndrome. She has had chronic fatigue and pain which is likely a combination of degenerative disease and fibromyalgia. She also has some chronic anxiety/depression. Her other surgeries include appendectomy, partial hysterectomy, and cervical spine fusion. She has a history of smoking 1 pack of cigarettes daily. Her family history is significant in that her father of melanoma and the brother also was treated for melanoma. There is no history of breast cancer in the family. She is seen for a scheduled visit. She complains that she has been tired a lot, but she keeps busy. She has pretty much normal activity. Her ECOG score is 0. She has had ongoing complaints of chest pain, and she did have a stress test yesterday, which showed normal LV function and no evidence of cardiac ischemia. She does not have good appetite, but her weight is stable. She does not have fever or night sweats. She occasionally has chills and she sometimes feels warm at night. She has chronic sinus symptoms for which she is using Flonase. She was having a cough, that did improve with antibiotic treatment. Her breathing is been pretty good. She still has some chest pain at times. She occasionally has nausea and she occasionally has abdominal cramping. Bowel function has been okay. She continues to have bladder issues . She takes antibiotic for it as needed. She also has pain in her shoulders and in her lower back. She has occasional headache. She sometimes has orthostatic lightheadedness and or shakiness. The fingers in the median nerve distribution of her right hand tend to go numb. She has no other focal neurologic symptoms. She does complain, though, of having a lot of muscle cramps. Medications: AmLODIPine Besylate 1 Tablet (of 2.5 mg) Oral daily, Amoxicillin-Pot Clavulanate 1 (875-125 mg) Tablet Oral b.i.d. for 7 days, Dicyclomine HCl 1 (10 mg) Capsule Oral four times a day, Fish Oil 1 (1200 mg) Capsule Oral daily, Flonase 1 spray(s) (of 50 mcg/act) Suspension Nasal PRN, Gabapentin 1 Capsule (of 100 mg) Oral t.i.d., Isosorbide Dinitrate 1 Tablet (of 30 mg) Oral daily, Levothyroxine Sodium 1 Tablet (of 50 mcg) Oral daily, Metoprolol Succinate ER 1 Tablet (of 50 mg) Tablet SR 24 HR Oral daily, Multivitamin Women 1 Tablet Oral daily, Nitroglycerin Tablet, sublingual Sublingual PRN, Omeprazole 1 (20 mg) Capsule Delayed Release Oral b.i.d., Simvastatin 1 (40 mg) Tablet Oral at bedtime, Ventolin HFA 1 (108 (90 base) mcg/act) Aerosol, solution Inhalation PRN Allergies: Sulfamethoxazole-Trimethoprim Vital Signs: Performed on February 08, 2021 15:00 Height - 62.00 in Weight - 147 lbs (LOW) BSA - 1.68 sq.m BMI - 26.89 Temperature - 97.7 F (LOW) Pulse - 69 /min Respiration - 17 /min BP - 140/88 mm(hg) O2 Sat - 98 % Pain - 0 Physical Examination: Constitutional - She looks pretty good generally, Eyes - Sclerae nonicteric. Conjunctivae clear, ENMT - No lesions noted in the oral cavity, Hematologic/Lymphatic - No cervical or clavicular adenopathy, Respiratory - Lungs are clear with good air movement bilaterally, Cardiovascular - Heart rhythm is regular. There is no murmur, gallop, or rub noted, Breasts - There is some mild tenderness in the right breast reconstruction medially. This appears to be associated with the underlying ribs/costochondral junctions. There are no chest wall lesions noted. There is minimal nodularity in the inferior aspect of the left breast. There are no suspicious breast masses noted. There is no axillary adenopathy noted, Abdomen - Soft. Liver and spleen are not enlarged. There is no abdominal mass or ascites noted and there is no inguinal adenopathy, Extremities - No edema, Integumentary - No rashes. No suspicious skin lesions noted, Neurologic - No focal neurologic deficits noted. Lab/Imaging: Test performed on February 08, 2021 13:52 Sodium 141 mmol/L Potassium 3.4 mmol/L Chloride 104 mmol/L CO2 26 mmol/L Anion Gap 14.4 BUN 15 mg/dL Creatinine 0.8 mg/dL Cr Clearance (Est) 68.8800 mL/min eGFR 70.9 mL/min Glucose 131 mg/dL Osmolality - Calculated 295 mOsm/kg Calcium 8.8 mg/dL Protein, Total 7.0 g/dL Albumin 4.2 g/dL Globulin 2.8 g/dL Bilirubin, Total 0.5 mg/dL ALT (SGPT) 24 U/L AST (SGOT) 20 U/L Alkaline Phosphatase 68 IU/L WBC 6.0 10 3/uL RBC 4.75 10 6/uL HGB 14.2 g/dL HCT 44.0 % MCV 92.6 fL MCH 29.9 pg MCHC 32.3 g/dL RDW 13.2 % Platelet Count 223 10 3/cmm MPV 10.3 fL Neutrophils 3.64 10 3/uL Lymphocytes 1.5 10 3/uL Monocytes 0.7 10 3/uL Eosinophils 0.1 10 3/uL Basophils 0.0 10 3/uL Neutrophil % 60.7 % Lymphocyte % 24.5 % Monocyte % 12.2 % Eosinophil % 2.0 % Basophils % 0.3 % NRBC % 0 % Problem List: 1. Bilateral ductal carcinoma in situ. 2. She had radiographic evidence of benign osteochondroma of the left iliac wing. It was not symptomatic. 3. Hypertension. 4. Hyperlipidemia. 5. GERD. 6. Irritable bowel syndrome. 7. COPD. 8. Degenerative arthritis. 9. Chronic fatigue and chronic pain felt to be consistent with fibromyalgia. 10. Anxiety/depression. 11. Nicotine dependence (cigarettes). Problems Addressed with this Encounter and Plan: 1. Patient with bilateral ductal carcinoma in situ, including a locally advanced ductal carcinoma in situ of the right breast for which she underwent right modified radical mastectomy and postoperative radiation in 1998. She had a delayed TRAM flap reconstruction. She had an abbreviated course of adjuvant hormonal therapy with tamoxifen, stopped in January 2002 due to side effects. Her left breast ductal carcinoma in situ was a small, mammographically detected lesion. It was evident only in the initial needle biopsy specimen in December 2015. There was no residual carcinoma identified in the subsequent lumpectomy on 02/02/2016. She was given radiation to the left breast, completed on 05/10/2016 to a total dose of 6000 cGy. She was then followed expectantly. During follow-up she has continued to have multiple complaints, the most significant being fatigue and musculoskeletal pain. She also has had chest pain. I suspect that at least some component of that is related to her previous surgeries and/or radiation. Overall, though, she has been doing pretty well clinically. Thus far there has been no evidence of recurrence of her breast cancer. She continues expectant management. I will see her again in 6 months, or sooner as needed. 2. She had radiographic evidence of benign osteochondroma of the left iliac wing. It was not symptomatic and it has been stable on follow-up. 3. She has numbness and pain in the median nerve distribution on the right, and her nerve conduction studies did show evidence of carpal tunnel syndrome. She will be given the option of referral to the orthopedic clinic. 4. She has mild hypokalemia. She will be given a prescription for an oral potassium supplement, 10 mEq daily. Signed By: Booker Mc M.D. <<Signature on File>>
== END 2021-02-08 13:28 | disposition home or self-care (01) ==
LOC: ONCMED 13:30
PROVIDERS: PCP Nurse Practitioner Family; Visit Provider Internal Medicine Medical Oncology
DX: Z08 Encounter for follow-up examination after completed treatment for malignant neoplasm (principal); Z85.3 Personal history of malignant neoplasm of breast; D16.8 Benign neoplasm of pelvic bones, sacrum and coccyx; I10 Essential (primary) hypertension; E78.5 Hyperlipidemia, unspecified; K21.9 Gastro-esophageal reflux disease without esophagitis; K58.9 Irritable bowel syndrome, unspecified; J44.9 Chronic obstructive pulmonary disease, unspecified; M19.90 Unspecified osteoarthritis, unspecified site; R53.82 Chronic fatigue, unspecified; G89.29 Other chronic pain; F41.9 Anxiety disorder, unspecified; F32.9 Major depressive disorder, single episode, unspecified; F17.210 Nicotine dependence, cigarettes, uncomplicated; Z79.899 Other long term (current) drug therapy; Z92.3 Personal history of irradiation
CPT/HCPCS: 80053; 85025; 99214

== ENCOUNTER → 2021-03-13 11:43 | Outpatient (BNVA) | payer MEDICARE, SELFPAY | PROVIDERS: PCP Nurse Practitioner Family; Visit Provider Orthopaedic Surgery | DX: G56.01 Carpal tunnel syndrome, right upper limb (principal); Z11.52 Encounter for screening for COVID-19; Z20.822 Contact with and (suspected) exposure to COVID-19 | CPT/HCPCS: 87635 ==

== ENCOUNTER 2021-03-16 06:29 | Day surgery (SDC) | payer MEDICARE, SELFPAY ==
[2021-03-15 12:17] VITALS: BMI 27.9
[2021-03-16 06:59] VITALS: BP 118/80; PULSE 68; RESP 16; TEMP 36.2; O2SAT 97
[2021-03-16] MEDS: sodium chloride 0.9% 1,000 ML 30 ML IV (07:00)
--- NOTE | 2021-03-16 07:58 | ANES.PREANE2 ---
Pre-Anesthetic Assessment Pre-Anesthetic Assessment: Height/Weight: Height 1.55 m Weight 67.132 kg Temp Pulse Resp BP Pulse Ox 97.1 F L 68 16 118/80 97 03/16/21 06:59 03/16/21 06:59 03/16/21 06:59 03/16/21 06:59 03/16/21 06:59 Preop Diagnosis: Carpal tunnel syndrome Proposed Procedure: Operation Date: 03/16/21 08:00 Proposed Procedures p Right Carpal Tunnel Release [id number] G56.01(Right) - Anatoly Grayson MD Familial anesthetic complications: none Was Beta Jus taken within 24 hours: Yes Was Clonidine taken within 24 hours: N/A Last intake: Intake Last Liquid Date 03/15/21 Last Liquid Time 22:00 Last Solid Date 03/15/21 Last Solid Time 20:30 Last Intake: 22:00 Social: Social History: Tobacco Packs per day: 1ppd Pack years: 20+ Exam: Pre-Anes Outpt Exam: alert, oriented x 3, clear to auscultation bilaterally and regular rate & rhythm Airway: Submandibular: WNL Cervical ROM: WNL MP: 2 Dentition: False (upper) Pulmonary: Pulmonary: None reported CV/HEM: CV/HEM: Angina (Stable) (pt seen Dr Jameson and neg stress test in January), DVT () and HTN : : None reported Hepatic: Hepatic: None reported GI: GI: GERD (controlled with meds) Metabolic: Metabolic: Thyroid Musc/skel: Musc/skel: Lower Back Pain and OA/DJD Neuropsych: Neuropsych: None reported Anesthetic Plan: ASA status: 3 Anesthesia: MAC and Regional (specify below) ([place] block) Risk of > 500 ml blood loss (7ml/kg in children): No PFSH Anesthesia PFSH: Medical History Atherosclerotic heart disease of [place] coronary artery with other forms of angina pectoris Benign essential HTN Diverticulosis Dyslipidemia History of chronic diarrhea History of shingles HTN (hypertension) Hx of colonic polyps Hx of migraine headaches Hx of shortness of breath Hypothyroid Palpitations Recurrent UTI Surgical History H/O esophagogastroduodenoscopy (06/09/20) History of partial hysterectomy History of reconstruction of right breast Hx of appendectomy Hx of colonoscopy (06/09/20) cecal and ascending colon polyp Hx of fusion of cervical spine Hx of neck surgery Hx of total mastectomy of right breast Family History Son CAD (coronary artery disease) Hyperlipidemia Hypertension Sister Cancer Diabetes Brother Cancer Hyperlipidemia Lung disease Father Cancer Daughter Hyperlipidemia Hypertension Mother Hyperlipidemia Denies family history of Clotting disorder Dementia Psychiatric illness Chronic kidney disease (CKD) Suicide Anesthesia complication Bleeding disorder Stroke Social History Smoking and tobacco status: current every day smoker Quit status (tobacco): has tried quititng Second hand smoke exposure: Yes Smoking risk assessment/counseling performed?: Yes Alcohol intake: never Data Anesthesia Cardiac Studies: Cardiac Event Monitor 07/06/20
--- NOTE | 2021-03-16 08:11 | W.PM.OPSUD ---
Surgery/Procedure H&P Update DATE OF PROCEDURE: March 16, 2021 DATE H&P PERFORMED: 03/01/21 H&P UPDATE INFORMATION: I have reviewed H&P completed within last 30 days and No changes to prior documentation PREOP DIAGNOSIS: Carpal tunnel syndrome PLANNED PROCEDURE: Operation Date: 03/16/21 08:00 Proposed Procedures p Right Carpal Tunnel Release [id number] G56.01(Right) - Anatoly Grayson MD
[2021-03-16 09:00] VITALS: BP 116/72; PULSE 65; RESP 16; TEMP 36.1; O2SAT 95
[2021-03-16 09:05] VITALS: BP 108/67; PULSE 62; RESP 16; O2SAT 93
--- NOTE | 2021-03-16 09:05 | PM.OP ---
Operative Report Date of procedure: March 16, 2021 Pre-op Diagnosis: Right Carpal tunnel syndrome Post-op Findings: Same Procedure Done: Right carpal tunnel syndrome Pathology: none sent Anesthesia: Nerve Block ([place] block) Estimated blood loss (mL): 2 Tourniquet time (min): 20 Findings: No masses or space-occupying lesions were seen with no masses or space-occupying lesions were seen within the carpal tunnel Condition: stable Disposition: PACU Procedure: Patient was taken to the operating room and anesthesia provided by the anesthesia service. She was prepped and draped with the arm exposed. A timeout was performed. A 3 cm long incision was made in line with the fourth ray from the distal edge of the carpal tunnel extending proximally. The subcutaneous fat and palmar fascia was divided with a scalpel blade. Under loupe magnification the ulnar neurovascular bundle was identified distally. A hemostat could be passed under the transverse carpal ligament allowing the distal 25% to be divided. A slotted guide was then passed beneath the transverse carpal ligament and the middle 50% divided. Blunt scissors were then passed over the guide freeing the proximal ligament. The tourniquet was deflated. Hemostasis provided with electrocautery. Wound edges were infiltrated with 10 cc of a half percent Marcaine solution. Skin edges were reapproximated with 3-0 Prolene. Sterile dressings were applied. The patient was taken to the recovery room in stable condition
[2021-03-16 09:10] VITALS: BP 136/73; PULSE 66; RESP 17; O2SAT 95
[2021-03-16 09:15] VITALS: BP 121/87; BP 135/78; PULSE 60; PULSE 74; RESP 16; RESP 17; TEMP 36.4; TEMP 36.6; O2SAT 94; O2SAT 96
[2021-03-16 09:30] VITALS: BP 145/80; PULSE 72; RESP 16; TEMP 36.6; O2SAT 97
--- NOTE | 2021-03-16 14:48 | ANE.PACU2 ---
Inpatient post-anesthesia follow up: Airway intact: Yes Vital signs: Temperature 97.9 F Pulse Rate 72 Respiratory Rate 16 Blood Pressure 145/80 Pulse Oximetry 97 Oxygen Delivery Me thod Room Air Oxygen Flow Rate Fraction of Inspir ed Oxygen Hydration adequate: Yes Nausea and vomiting: No Pain level: 2 Mental status: Baseline
== END 2021-03-16 09:50 | disposition home or self-care (01) ==
PROVIDERS: PCP Nurse Practitioner Family; Visit Provider Orthopaedic Surgery
PROC: (CPT 64721; principal; 2021-03-16 08:00)
DX: G56.01 Carpal tunnel syndrome, right upper limb (principal); F17.210 Nicotine dependence, cigarettes, uncomplicated; K21.9 Gastro-esophageal reflux disease without esophagitis; M19.90 Unspecified osteoarthritis, unspecified site; I25.118 Atherosclerotic heart disease of native coronary artery with other forms of angina pectoris; I10 Essential (primary) hypertension; E78.5 Hyperlipidemia, unspecified; Z82.49 Family history of ischemic heart disease and other diseases of the circulatory system; Z83.3 Family history of diabetes mellitus
CPT/HCPCS: 64721; J0690; J3010; J3490; J7030

== ENCOUNTER → 2021-07-24 10:32 | Outpatient (BNVA) | payer MEDICARE, SELFPAY | PROVIDERS: PCP Nurse Practitioner Family; Visit Provider Urology | DX: R31.29 Other microscopic hematuria (principal); N39.0 Urinary tract infection, site not specified | CPT/HCPCS: 81003 ==

== ENCOUNTER 2021-07-27 13:22 | Outpatient (CLI) | payer MEDICARE, SELFPAY ==
[2021-07-27 14:14] LABS: Basophils % 0.3 %; Eosinophils # 0.2 10^3/uL (0.0-0.8); Eosinophils % 2.6 %; Hematocrit 42.8 % (37.0-47.0); Hemoglobin 14.2 g/dL (11.5-15.3); Lymphocytes # 1.8 10^3/uL (0.8-4.8); Lymphocytes % 19.5 %; Mean Corpuscular HGB Conc 33.2 g/dL (30.0-36.0); Mean Corpuscular Hemoglobin 30.9 pg (28.0-34.0); Mean Platelet Volume 9.6 fL (7.4-10.4); Monocytes # 1.2 10^3/uL (0.2-0.9); Monocytes % 13.5 %; Neutrophils # 5.84 10^3/uL (1.8-7.7); Neutrophils % 63.9 %; Nucleated Red Blood Cells % 0 %; Platelet Count 233 10^3/cmm (130-400); Red Cell Distribution Width 13.2 % (12.1-15.1); White Blood Count 9.2 10^3/uL (4.0-10.0)
[2021-07-27 14:33] LABS: Alanine Aminotransferase 20 U/L (0-33); Albumin Level 4.3 g/dL (3.5-5.2); Alkaline Phosphatase 67 IU/L (35-105); Anion Gap 13.6 (5-19); Aspartate Amino Transferase 15 U/L (0-32); Blood Urea Nitrogen 15 mg/dL (8-23); Carbon Dioxide 25 mmol/L (22-29); Chloride 104 mmol/L (98-107); Globulin 2.3 g/dL (1.3-4.6); Glucose 81 mg/dL (65-115); Osmolality Calculated 288 mOsm/kg (285-295); Potassium 3.6 mmol/L (3.5-5.1); Sodium 139 mmol/L (136-145); Total Bilirubin 0.4 mg/dL (0.15-1.2); Total Protein 6.6 g/dL (6.6-8.7)
[2021-07-27 16:18] LABS: Estmated Average Glucose 120; Hemoglobin A1C 5.8 % (4.0-6.0)
--- NOTE | 2021-07-29 11:24 | ONC FU_ITS ---
Dr. Mc Patient Follow-Up Note Patient: Kim Carey Unit #: [id number]: 1950 Dicatated By: Booker Mc M.D.Date of Visit:Jul 27, 2021 Onc Med Follow-up/Prog Note Chief Complaint: Breast cancer. History of Present Illness: This is a 70 year-old woman with a bilateral ductal carcinoma in situ. She had presented in April 1999 with a large mass in the right breast. The initial biopsy showed grade 2-3/3 ductal carcinoma in situ measuring 2.0 x 1.0 cm. She then underwent right modified radical mastectomy. Pathology on the mastectomy showed residual DCIS measuring 4.0 x 3.0 cm with mixed cribriform, solid, and comedo patterns. There was tumor within 0.5 mm of the inked deep margin. There was no invasive cancer identified and there was no involvement in 9 axillary lymph nodes. She did receive postop chest wall radiation because of the close margin. She had a delayed TRAM flap reconstruction. She also took adjuvant Tamoxifen, but she stopped in January 2002 because of side effects. During followup there has been no evidence of recurrence. On her yearly left unilateral mammogram in November 2015, she was noted to have a group of punctate calcifications in the anterior third medial aspect of the breast. These appeared to have increased compared to previous mammograms. With additional views, the calcifications did appear to be suspicious, and biopsy was recommended. A stereotactic needle biopsy of the left breast on 01/06/2016 showed DCIS arising within fibrocystic change with atypical ductal hyperplasia. Microcalcifications were identified, but no invasive carcinoma was identified. On 02/02/2016 she underwent left breast lumpectomy under needle localization. Pathology showed fibrocystic changes with focal ductal hyperplasia and associated mixed adenosis. There was no invasive or intraductal carcinoma identified. The margins of resection were free of any tumor or significant atypia. She was referred to Dr. Andrea, and she subsequent underwent radiation to the left breast which she completed on 05/10/2016 to a total dose of 6000 cGy. She tolerated the treatment well. She has since then been followed on observation/expectant management. She has additional history of benign osteochondroma of the left iliac wing. This has just been monitored with observation and has shown no evidence of progression. Her other medical illnesses include hypertension, hyperlipidemia, COPD, GERD, and irritable bowel syndrome. She has had chronic fatigue and pain which is likely a combination of degenerative disease and fibromyalgia. She also has some chronic anxiety/depression. Her other surgeries include appendectomy, partial hysterectomy, and cervical spine fusion. She has a history of smoking 1 pack of cigarettes daily. Her family history is significant in that her father of melanoma and the brother also was treated for melanoma. There is no history of breast cancer in the family. She is seen for a scheduled visit. She has not been feeling very good generally. She says she has no energy, but she keeps active. ECOG score is 1. Appetite is not very good. Her weight is down a couple of pounds. She has had a recent head cold, and she thinks she has had little fever with it. She sometimes has chills. She does not have night sweating or hot flashes. She has allergy related sinus symptoms. She also complains of sore throat. She has cough productive of yellowish sputum. She says her breathing is not real good. She has continued to have chest pain quite often. It tends to occur with activity or straining. She is still undergoing cardiac evaluation. She sometimes has a little bit of nausea. Bowel and bladder function remain adequate. She does follow with Dr. Moeller for chronic cystitis. She has joint pain, mainly in the hands and knees. She reports having some headaches and she has a little bit of dizziness. She sometimes has tingling in her right leg. She has become aware of a lump in her left breast. Medications: AmLODIPine Besylate 1 Tablet (of 2.5 mg) Oral daily, Amoxicillin-Pot Clavulanate 1 (875-125 mg) Tablet Oral b.i.d. for 7 days, Dicyclomine HCl 1 (10 mg) Capsule Oral four times a day, Fish Oil 1 (1200 mg) Capsule Oral daily, Flonase 1 spray(s) (of 50 mcg/act) Suspension Nasal PRN, Gabapentin 1 Capsule (of 100 mg) Oral t.i.d., Isosorbide Dinitrate 1 Tablet (of 30 mg) Oral daily, Levothyroxine Sodium 1 Tablet (of 50 mcg) Oral daily, Metoprolol Succinate ER 1 Tablet (of 50 mg) Tablet SR 24 HR Oral daily, Multivitamin Women 1 Tablet Oral daily, Nitroglycerin Tablet, sublingual Sublingual PRN, Omeprazole 1 (20 mg) Capsule Delayed Release Oral b.i.d., Simvastatin 1 (40 mg) Tablet Oral at bedtime, Ventolin HFA 1 (108 (90 base) mcg/act) Aerosol, solution Inhalation PRN Allergies: Sulfamethoxazole-Trimethoprim Vital Signs: Performed on Jul 27, 2021 15:59 Height - 62.00 in Weight - 144.6 lbs (LOW) BSA - 1.67 sq.m BMI - 26.45 Temperature - 97.4 F (LOW) Pulse - 70 /min Respiration - 18 /min BP - 137/67 mm(hg) O2 Sat - 97 % Pain - 7 Fatigue - 10 Physical Examination: Constitutional - She looks pretty good generally, Eyes - Sclerae nonicteric. Conjunctivae clear, ENMT - No lesions noted in the oral cavity, Hematologic/Lymphatic - No cervical or clavicular adenopathy, Respiratory - Lungs are clear with good air movement bilaterally, Cardiovascular - Heart rhythm is regular. There is no murmur, gallop, or rub noted, Breasts - There are no lesions noted in the right breast reconstruction. The left breast is generally indurated. There is a palpable nodule just above the lumpectomy scar in the superior left breast. There is no axillary adenopathy noted, Abdomen - Soft. Liver and spleen are not enlarged. There is no abdominal mass or ascites noted and there is no inguinal adenopathy, Extremities - Slight edema. Pedal pulses are palpable bilaterally, Neurologic - No focal neurologic deficits noted. Lab/Imaging: Test performed on Jul 27, 2021 13:53 Sodium 139 mmol/L Potassium 3.6 mmol/L Chloride 104 mmol/L Est Avg Glucose (eAG) 120 mg/dL CO2 25 mmol/L Anion Gap 13.6 BUN 15 mg/dL Creatinine 0.6 mg/dL Cr Clearance (Est) 89.05 mL/min Glucose 81 mg/dL Osmolality - Calculated 288 mOsm/kg Calcium 9.0 mg/dL Protein, Total 6.6 g/dL Albumin 4.3 g/dL Globulin 2.3 g/dL Bilirubin, Total 0.4 mg/dL ALT (SGPT) 20 U/L AST (SGOT) 15 U/L Alkaline Phosphatase 67 IU/L Hemoglobin A1C % 5.8 % WBC 9.2 10 3/uL RBC 4.60 10 6/uL HGB 14.2 g/dL HCT 42.8 % MCV 93.0 fl MCH 30.9 pg MCHC 33.2 g/dL RDW 13.2 % Platelet Count 233 10 3/cmm MPV 9.6 fL Neutrophils 5.84 10 3/uL Lymphocytes 1.8 10 3/uL Monocytes 1.2 10 3/uL Eosinophils 0.2 10 3/uL Basophils 0.0 10 3/uL Neutrophil % 63.9 % Lymphocyte % 19.5 % Monocyte % 13.5 % Eosinophil % 2.6 % Basophils % 0.3 % NRBC % 0 % Problem List: 1. Bilateral ductal carcinoma in situ. 2. She had radiographic evidence of benign osteochondroma of the left iliac wing. It was not symptomatic. 3. Hypertension. 4. Hyperlipidemia. 5. GERD. 6. Irritable bowel syndrome. 7. COPD. 8. Degenerative arthritis. 9. Chronic fatigue and chronic pain felt to be consistent with fibromyalgia. 10. Anxiety/depression. 11. Nicotine dependence (cigarettes). Problems Addressed with this Encounter and Plan: 1. Patient with bilateral ductal carcinoma in situ, including a locally advanced ductal carcinoma in situ of the right breast for which she underwent right modified radical mastectomy and postoperative radiation in 1998. She had a delayed TRAM flap reconstruction. She had an abbreviated course of adjuvant hormonal therapy with tamoxifen, stopped in January 2002 due to side effects. Her left breast ductal carcinoma in situ was a small, mammographically detected lesion. It was evident only in the initial needle biopsy specimen in December 2015. There was no residual carcinoma identified in the subsequent lumpectomy on 02/02/2016. She was given radiation to the left breast, completed on 05/10/2016 to a total dose of 6000 cGy. She was then followed expectantly. During follow-up she has continued to have multiple complaints, the most significant being fatigue and musculoskeletal pain. She has not had any evidence for recurrence of her breast cancer, but recently she has become aware of a new nodule in the superior left breast, just above the lumpectomy incision. As it has been 6 months since her last imaging, I will schedule her for diagnostic mammogram and ultrasound. She will have further evaluation as indicated. 2. She had radiographic evidence of benign osteochondroma of the left iliac wing. It was not symptomatic and it has been stable on follow-up. Signed By: Booker Mc M.D. <<Signature on File>>
== END 2021-07-27 13:23 | disposition home or self-care (01) ==
LOC: ONCMED 13:24
PROVIDERS: PCP Nurse Practitioner Family; Visit Provider Internal Medicine Medical Oncology
DX: D05.12 Intraductal carcinoma in situ of left breast (principal); D05.11 Intraductal carcinoma in situ of right breast; D16.8 Benign neoplasm of pelvic bones, sacrum and coccyx; I10 Essential (primary) hypertension; E78.5 Hyperlipidemia, unspecified; K21.9 Gastro-esophageal reflux disease without esophagitis; K58.9 Irritable bowel syndrome, unspecified; J44.9 Chronic obstructive pulmonary disease, unspecified; M19.90 Unspecified osteoarthritis, unspecified site; R53.82 Chronic fatigue, unspecified; M79.7 Fibromyalgia; F41.9 Anxiety disorder, unspecified; F32.9 Major depressive disorder, single episode, unspecified; F17.210 Nicotine dependence, cigarettes, uncomplicated; Z79.899 Other long term (current) drug therapy
CPT/HCPCS: 36415; 80053; 83036; 85025; 90471; 90686; 99214

== ENCOUNTER 2021-08-01 11:34 | Outpatient (CLI) | payer MEDICARE, SELFPAY ==
--- NOTE | 2021-08-01 11:47 | MM_ITS ---
WS: [id number] DIAGNOSTIC LEFT DIGITAL MAMMOGRAM WITH CAD LEFT breast ultrasound, limited HISTORY: LUMP/NODULE SUPERIOR LT Breast; post RADIATION FOR DCIS COMPARISON: 01/04/2021, 09/28/2019 and 09/25/2018 Technique: CC, MLO and ML views. A compression LEFT CC and MLO. Breast composition: There are scattered areas of fibroglandular density. Triangular marker over the anterior LEFT breast at 12:00 has been placed in the palpable area. No underlying mass or change in t he parenchymal pattern. There are a few benign-appearing calcifications. No distortion of soft tissue s. LEFT breast ultrasound, limited. Ultrasound directed to the superior breast in the area of concern. There is a scar present but no sha dowing or soft tissue mass identified. No increased vascularity. MM/[place] [id number] IMPRESSION: BI-RADS: 2-Benign FOLLOW UP: 1 Year Follow-up No mammographic or ultrasound abnormality along the 12:00 axis to correspond to the palpable finding.
== END 2021-08-01 11:35 | disposition home or self-care (01) ==
LOC: RADSHAW 11:40
PROVIDERS: PCP Nurse Practitioner Family; Visit Provider Internal Medicine Medical Oncology
DX: N63.20 Unspecified lump in the left breast, unspecified quadrant (principal)
CPT/HCPCS: 76642; 77065

== ENCOUNTER → 2022-03-29 10:49 | Outpatient (BNVA) | payer MEDICARE, SELFPAY | PROVIDERS: PCP Nurse Practitioner Family; Visit Provider Internal Medicine Cardiovascular Disease | DX: I25.118 Atherosclerotic heart disease of native coronary artery with other forms of angina pectoris (principal); I10 Essential (primary) hypertension; E78.5 Hyperlipidemia, unspecified; E03.9 Hypothyroidism, unspecified; F17.200 Nicotine dependence, unspecified, uncomplicated | CPT/HCPCS: 99214 ==

== ENCOUNTER 2022-04-04 09:59 | Outpatient (CLI) | payer MEDICARE, SELFPAY ==
--- NOTE | 2022-04-04 10:13 | MM_ITS ---
WS: [id number] DIAGNOSTIC LEFT DIGITAL BREAST TOMOSYNTHESIS MAMMOGRAPHY WITH CAD. HISTORY: HX OF BREAST Ca; rt MAST COMPARISON: 08/01/2021, 01/04/2021, 09/28/2019 Technique: CC, MLO and ML views. Breast composition: The breasts are heterogeneously dense, which may obscure small masses. Prior bio psy clip in the central breast. Benign calcifications. No distortion. MM/[place] [id number] IMPRESSION: BI-RADS: 2-Benign FOLLOW UP: 1 Year Follow-up
== END 2022-04-04 10:00 | disposition home or self-care (01) ==
LOC: RAD 10:00
PROVIDERS: PCP Nurse Practitioner Family; Visit Provider Nurse Practitioner Family
DX: Z90.11 Acquired absence of right breast and nipple (principal); Z85.3 Personal history of malignant neoplasm of breast
CPT/HCPCS: 77061

== ENCOUNTER → 2022-09-27 10:15 | Outpatient (BNVA) | payer MEDICARE, SELFPAY | PROVIDERS: PCP Nurse Practitioner Family; Visit Provider Internal Medicine Cardiovascular Disease | DX: I25.118 Atherosclerotic heart disease of native coronary artery with other forms of angina pectoris (principal); I10 Essential (primary) hypertension; E78.5 Hyperlipidemia, unspecified; E03.9 Hypothyroidism, unspecified; F17.200 Nicotine dependence, unspecified, uncomplicated | CPT/HCPCS: 93005; 99214 ==

== ENCOUNTER 2022-10-05 08:32 | Oncology outpatient (recurring) (ONCR) | payer MEDICARE, SELFPAY | END 2022-10-23 23:59 | disposition home or self-care (01) | PROVIDERS: PCP Nurse Practitioner Family; Visit Provider Internal Medicine Medical Oncology | DX: Z08 Encounter for follow-up examination after completed treatment for malignant neoplasm (principal); Z85.3 Personal history of malignant neoplasm of breast; D16.8 Benign neoplasm of pelvic bones, sacrum and coccyx; F17.210 Nicotine dependence, cigarettes, uncomplicated; Z92.3 Personal history of irradiation | CPT/HCPCS: 99213 ==

== ENCOUNTER → 2022-10-15 09:48 | Outpatient (BNVA) | payer MEDICARE, SELFPAY | PROVIDERS: PCP Nurse Practitioner Family; Referring Provider Nurse Practitioner Family; Visit Provider Student in an Organized Health Care Education/Training Program | DX: M65.332 Trigger finger, left middle finger (principal); M18.12 Unilateral primary osteoarthritis of first carpometacarpal joint, left hand; M79.642 Pain in left hand | CPT/HCPCS: 73130 ==

== ENCOUNTER 2022-10-15 14:36 | Outpatient (CLI) | payer MEDICARE, SELFPAY | END 2022-10-15 14:37 | disposition home or self-care (01) | LOC: SPT 14:37 | PROVIDERS: PCP Nurse Practitioner Family; Visit Provider Student in an Organized Health Care Education/Training Program | DX: Z46.89 Encounter for fitting and adjustment of other specified devices (principal); M79.642 Pain in left hand | CPT/HCPCS: 20600; 97760; 99204; L3924 ==

== ENCOUNTER 2022-11-15 08:56 | Outpatient (CLI) | payer MEDICARE, SELFPAY ==
[2022-11-15 09:41] VITALS: BMI 27.9
--- NOTE | 2022-11-15 10:21 | NMCV_ITS ---
NM joseline perf SPECT r/s* [id number] Kim Carey Age: 72 Gender: F : 1950 Exam Date: 11/15/2022 10:19 Ordering Phys: Digna Jameson MD ([email or web address]) Technologist: JOY Cummins Exam Location: [facility] Indications: CHEST PAIN STRESS TEST [facility] IMAGE PROTOCOL Rest/Stress 1 Lexiscan Day Radiopharmaceutical Dose (mCi) Administration Site Administered by Rest: Tc-99m 10.5 IV JOY Michael Sestamibi Stress:Tc-99m 32.3 IV JOY Michael Sestamibi Rest: 15-Nov-2022 60 Discovery 630 Stress: 15-Nov-2022 30 Discovery 630 0.4mg Lexiscan. Images obtained in supine and prone position. SPECT RESULTS Technical Quality: Excellent Raw Data Analysis: Normal Image Corrections: No attenuation or motion correction applied Summed Stress Score: 1 Summed Rest Score: 0 Summed Difference Score: 1 PERFUSION FINDINGS A small area of slightly decreased tracer uptake in the apical lateral region with some reversibility. FUNCTIONAL RESULTS (calculated via Gated SPECT) Stress Image LV EF (%): 84 Stress EDV (mL):58 TID: 0.77 Stress ESV (mL):9 FUNCTIONAL FINDINGS: Segmental wall motion analysis revealing no gross wall motion abnormalities. IMPRESSIONS 1. Myocardial perfusion imaging revealing a small area of subtle reversibility in the apical lateral region suggesting ischemia in the distribution of the left circumflex artery. However, there was no significant reversibility with the blackout mapping. 2. Normal LV ejection fraction of 84%. 3. LV wall motion analysis revealing no gross wall motion abnormalities. 4. Normal LV volume Subtle area of ischemia in the apical lateral region, most likely is artifactual. Clinical correlation is recurrent Dr Digna Jameson MD [facility] (Electronically Signed) Final Date: 15 November 2022 14:11 S
--- NOTE | 2022-11-15 10:21 | ECG_ITS ---
[facility] Test Date: 2022-11-15 Pat Name: Kim Carey Department: Room: Gender: Female Ip Attorney: : 1950 Requested By: Digna Jameson Order Number: [id number] Tere MD: Digna Jameson M.D. Interpretive Statements NAME OF STUDY: LEXISCAN SESTAMIBI STRESS TEST INDICATION: Chest Pain RESULTS TO SUMAN VALDEZ PROCEDURE: At the baseline, the EKG revealed normal sinus rhythm with poor R wave progression. Normal AK and QRS duration. The baseline heart was 63 bpm with a blood pressue of 130/78 mm of Hg Lexiscan was infused over a period of 20 seconds. A total of 0.4 milligrams of Lexiscan was infused. The stress phase was continued for a total of 5 minutes. Heart rate at the end of the stress phase was 87 bpm with a blood pressure 113/54 mm of Hg. The EKG at the peak infusion revealed no significant changes. Sestamibi was injected 20 seconds after the Lexiscan infusion. Heart rate at the end of the recovery phase was 83bpm with a blood pressure of 111/61 mm of Hg. CONCLUSION: 1. No significant EKG changes with the LexiScan infusion 2. No LexiScan induced chest pain or cardiac arrhythmia 3. Normal blood pressure and heart rate response 4. Sestamibi/sestamibi perfusion scan pending; see separate report. Electronically Signed On 11-24-2022 14:47:11 SALES TRAINING REPRESENTATIVE by Digna Jameson M.D. [id number]
[2022-11-15] MEDS: regadenoson 0.4 Mg/5 ml Syringe IVP (10:55)
[2022-11-15 11:27] VITALS: BP 121/74; PULSE 68
== END 2022-11-15 08:57 | disposition home or self-care (01) ==
PROVIDERS: PCP Nurse Practitioner Family; Visit Provider Internal Medicine Cardiovascular Disease
DX: R07.9 Chest pain, unspecified (principal)
CPT/HCPCS: 36415; 78452; 93017; 96374; 99214; A9500; J2785

== ENCOUNTER → 2022-12-13 08:27 | Outpatient (BNVA) | payer MEDICARE, SELFPAY | PROVIDERS: PCP Nurse Practitioner Family; Visit Provider Student in an Organized Health Care Education/Training Program | DX: M65.332 Trigger finger, left middle finger (principal); M18.12 Unilateral primary osteoarthritis of first carpometacarpal joint, left hand | CPT/HCPCS: 99213 ==

== ENCOUNTER 2023-04-05 10:50 | Outpatient (CLI) | payer MEDICARE, SELFPAY ==
--- NOTE | 2023-04-05 11:01 | MM_ITS ---
WS: [id number] Left breast diagnostic 3D tomosynthesis digital mammogram, 04/05/2023 Clinical Data: ANNUAL - HX BR CA;RT MST Comparison: 04/04/2022, 08/01/2021, 01/04/2021, 09/28/2019, 09/25/2018, 08/28/2017, 02/25/2017, 07/26/2016, 01/05, 12/22/2015, 12/05/2015, 05/25/2014, 01/21/2013, 07/23/2012, 07/09/2012, 09/06/2011, 09/04/2010, 07/25, 08/12/2008, 07/31/2007, 07/22/2006. Findings: The left breast shows heterogeneous density. There are benign calcifications throughout the left ijeoma st. There is a central biopsy clip. There are no secondary signs of carcinoma. There are no spiculate d masses nor clustered calcifications. MM/[place] [id number] Impression: 1. Negative left breast unchanged. 2. Recommend annual left breast mammogram. BIRADS: 1-Negative FOLLOW UP: 1 Year Follow-up The CAD wrapping checker was used.
== END 2023-04-05 10:51 | disposition home or self-care (01) ==
PROVIDERS: PCP Nurse Practitioner Family; Visit Provider Internal Medicine Medical Oncology
DX: Z85.3 Personal history of malignant neoplasm of breast (principal); Z90.11 Acquired absence of right breast and nipple
CPT/HCPCS: 77061; G0279

== ENCOUNTER → 2023-04-11 09:44 | Outpatient (BNVA) | payer MEDICARE, SELFPAY | PROVIDERS: PCP Nurse Practitioner Family; Visit Provider Internal Medicine Cardiovascular Disease | DX: I25.118 Atherosclerotic heart disease of native coronary artery with other forms of angina pectoris (principal); E78.5 Hyperlipidemia, unspecified; E03.9 Hypothyroidism, unspecified; I10 Essential (primary) hypertension; F17.200 Nicotine dependence, unspecified, uncomplicated; I95.1 Orthostatic hypotension | CPT/HCPCS: 99214 ==

== ENCOUNTER 2023-08-14 10:03 | Outpatient (CLI) | payer MEDICARE, SELFPAY ==
--- NOTE | 2023-08-14 10:11 | CT_ITS ---
WS: [id number] CT HEAD NONCONTRAST HISTORY: HEADACHE TECHNIQUE: Contiguous axial imaging performed through the brain in 3.0 mm imaging. Bone and soft tiss ue windows. Sagittal and coronal reformats reviewed. All CT scans at [facility] use at least one of these dose optimization techniques: automated exposure control; mA and/or kV adjustment per pa tient size (includes targeted exams where dose is matched to clinical indication); or iterative recon struction. DLP: 1023.88 mGy.cm COMPARISON: 10/14/2019 No acute intracranial hemorrhage, midline shift or mass effect. Mild symmetric atrophy and small vessel ischemic disease. Tiny lacunar infarct in the anterior limb o f the RIGHT internal capsule. Ventricles: Normal size with no hydrocephalus. No inferior displacement of the cerebellar tonsils. Paranasal sinuses: As visualized are clear. Mastoid air cells: Well pneumatized. Calvarium and scalp: Skull is intact with no soft tissue edema or swelling. IMPRESSION: 1. No acute intracranial hemorrhage or edema. 2. Mild atrophy and small vessel ischemic disease.
== END 2023-08-14 10:04 | disposition home or self-care (01) ==
LOC: RAD 10:08
PROVIDERS: PCP Nurse Practitioner Family; Visit Provider Nurse Practitioner Family
DX: R51.9 Headache, unspecified (principal); I67.89 Other cerebrovascular disease
CPT/HCPCS: 70450

== ENCOUNTER → 2023-10-22 10:17 | Outpatient (BNVA) | payer MEDICARE, SELFPAY | PROVIDERS: PCP Nurse Practitioner Family; Visit Provider Nurse Practitioner Family | DX: I25.118 Atherosclerotic heart disease of native coronary artery with other forms of angina pectoris (principal); I10 Essential (primary) hypertension; F17.200 Nicotine dependence, unspecified, uncomplicated | CPT/HCPCS: 99214 ==

== ENCOUNTER → 2023-11-27 08:29 | Outpatient (BNVA) | payer MEDICARE, SELFPAY | PROVIDERS: PCP Nurse Practitioner Family; Visit Provider Specialist | DX: G44.221 Chronic tension-type headache, intractable (principal); F17.200 Nicotine dependence, unspecified, uncomplicated | CPT/HCPCS: 99204 ==

== ENCOUNTER 2024-06-05 15:26 | Outpatient (CLI) | payer MEDICARE, MEDICAID, SELFPAY ==
--- NOTE | 2024-06-05 15:32 | US_ITS ---
WS: [id number] ULTRASOUND SOFT TISSUES anterior mid chest wall. HISTORY: CHEST WALL MASS COMPARISON: None available. TECHNIQUE: 2-D and color Doppler imaging is submitted. Ultrasound is directed to the area of interest along the mid sternum. No mass or change in echogenici ty. No cystic or solid mass no skin thickening. US/US chest [id number] IMPRESSION: No soft tissue mass along the midline central chest wall.
== END 2024-06-05 15:27 | disposition home or self-care (01) ==
LOC: RAD 15:27
PROVIDERS: PCP Nurse Practitioner Family; Visit Provider Nurse Practitioner Family
DX: R22.2 Localized swelling, mass and lump, trunk (principal)
CPT/HCPCS: 76604

== ENCOUNTER 2024-06-10 11:20 | Outpatient (CLI) | payer MEDICARE, MEDICAID, SELFPAY ==
--- NOTE | 2024-06-10 11:27 | MM_ITS ---
WS: [id number] LEFT 3D TOMOSYNTHESIS DIGITAL MAMMOGRAPHY WITH CAD CLINICAL INFORMATION: HX OF BREAST CANCER HISTORY: RIGHT mastectomy COMPARISON: 04/05/2023 TECHNIQUE: 3 views of the left breast were obtained. FINDINGS: The left breast is composed of heterogeneous fibroglandular density tissue, which can limit the detec tion of small underlying mass lesions. No suspicious focal mass, asymmetry, calcifications, or architectural distortion. No evidence of jaenette gnancy. MM/MM diag LT tomosynthesis [id number] IMPRESSION: DENSITY: The breasts are heterogeneously dense, which may obscure small masses. BI-RADS: 2 - Benign FOLLOW UP: 1 Year Follow-up Recommend return to annual diagnostic mammography.
== END 2024-06-10 11:21 | disposition home or self-care (01) ==
PROVIDERS: Absent Provider Internal Medicine Medical Oncology; PCP Nurse Practitioner Family; Visit Provider Nurse Practitioner Family
DX: Z85.3 Personal history of malignant neoplasm of breast (principal); R22.2 Localized swelling, mass and lump, trunk; R92.333 Mammographic heterogeneous density, bilateral breasts
CPT/HCPCS: 77061; G0279

== ENCOUNTER → 2024-07-22 14:35 | Outpatient (BNVA) | payer MEDICARE, MEDICAID, SELFPAY | PROVIDERS: PCP Nurse Practitioner Family; Referring Provider Nurse Practitioner Family; Visit Provider Nurse Practitioner Family | DX: F17.200 Nicotine dependence, unspecified, uncomplicated (principal); B07.8 Other viral warts; L72.0 Epidermal cyst | CPT/HCPCS: 17110; 99203 ==

== ENCOUNTER → 2024-08-17 09:08 | Outpatient (BNVA) | payer MEDICARE, MEDICAID, SELFPAY | PROVIDERS: PCP Nurse Practitioner Family; Visit Provider Dermatology | DX: R22.2 Localized swelling, mass and lump, trunk (principal); D22.5 Melanocytic nevi of trunk; L81.4 Other melanin hyperpigmentation; D48.5 Neoplasm of uncertain behavior of skin; R20.8 Other disturbances of skin sensation; R23.8 Other skin changes; L53.8 Other specified erythematous conditions | CPT/HCPCS: 11403; 13101; 99213 ==

== ENCOUNTER → 2024-08-31 12:56 | Outpatient (BNVA) | payer MEDICARE, MEDICAID, SELFPAY | PROVIDERS: PCP Nurse Practitioner Family; Visit Provider Nurse Practitioner Family | DX: R22.2 Localized swelling, mass and lump, trunk (principal); D22.5 Melanocytic nevi of trunk; L81.4 Other melanin hyperpigmentation; Z48.02 Encounter for removal of sutures; B07.8 Other viral warts; R20.8 Other disturbances of skin sensation; L53.8 Other specified erythematous conditions; Z29.89 Encounter for other specified prophylactic measures | CPT/HCPCS: 17110; 99213 ==

== ENCOUNTER → 2024-10-13 14:43 | Outpatient (BNVA) | payer MEDICARE, MEDICAID, SELFPAY | PROVIDERS: PCP Nurse Practitioner Family; Visit Provider Nurse Practitioner Family | DX: D22.5 Melanocytic nevi of trunk (principal); L81.4 Other melanin hyperpigmentation; D48.5 Neoplasm of uncertain behavior of skin | CPT/HCPCS: 11102; 99213 ==

== ENCOUNTER → 2024-12-02 13:13 | Outpatient (BNVA) | payer MEDICARE, MEDICAID, SELFPAY | PROVIDERS: PCP Nurse Practitioner Family; Visit Provider Nurse Practitioner Family | DX: D22.39 Melanocytic nevi of other parts of face (principal); L84 Corns and callosities; B07.8 Other viral warts; L53.8 Other specified erythematous conditions; Z78.9 Other specified health status; L29.89 Other pruritus | CPT/HCPCS: 17110; 99213 ==

== ENCOUNTER 2024-12-16 08:37 | Oncology outpatient (recurring) (ONCR) | payer MEDICARE, MEDICAID, SELFPAY ==
[2024-12-16 08:57] LABS: Basophils % 0.5 %; Eosinophils # 0.2 10^3/uL (0.0-0.8); Eosinophils % 1.8 %; Hematocrit 43.1 % (36-47); Lymphocytes # 1.4 10^3/uL (0.8-4.8); Lymphocytes % 16.6 %; Mean Corpuscular HGB Conc 32.5 g/dL (30-55); Mean Corpuscular Hemoglobin 30.2 pg (27-33); Mean Corpuscular Volume 93.1 fl (85-98); Mean Platelet Volume 9.6 fL (7.4-10.4); Monocytes % 11.7 %; Neutrophils # 5.98 10^3/uL (1.8-7.7); Neutrophils % 69.2 %; Nucleated Red Blood Cells % 0 %; Platelet Count 233 10^3/cmm (157-399); Red Blood Count 4.63 10^6/uL (3.85-5.65); Red Cell Distribution Width 13.7 % (12.1-15.1); White Blood Count 8.65 10^3/uL (3.29-11.43)
[2024-12-16 09:16] LABS: Alanine Aminotransferase 22 U/L (0-33); Albumin Level 4.2 g/dL (3.5-5.2); Alkaline Phosphatase 71 U/L (35-105); Aspartate Amino Transferase 22 U/L (0-32); Blood Urea Nitrogen 20 mg/dL (8-23); Calcium 9.3 mg/dL (8.5-10.5); Carbon Dioxide 26 mmol/L (22-29); Chloride 102 mmol/L (98-107); Globulin 2.8 g/dL (1.3-4.6); Glucose 150 mg/dL (65-115); Osmolality Calculated 291 mOsm/kg (285-295); Sodium 138 mmol/L (136-145); Total Bilirubin 0.7 mg/dL (0.15-1.2)
== END 2024-12-21 23:59 | disposition home or self-care (01) ==
PROVIDERS: PCP Nurse Practitioner Family; Visit Provider Internal Medicine
DX: Z08 Encounter for follow-up examination after completed treatment for malignant neoplasm (principal); Z85.3 Personal history of malignant neoplasm of breast; I25.118 Atherosclerotic heart disease of native coronary artery with other forms of angina pectoris; Z72.0 Tobacco use; D16.8 Benign neoplasm of pelvic bones, sacrum and coccyx; Z90.11 Acquired absence of right breast and nipple; Z92.3 Personal history of irradiation; Z92.23 Personal history of estrogen therapy
CPT/HCPCS: 36415; 80053; 85025; 99213

== ENCOUNTER → 2025-01-06 11:36 | Outpatient (BNVA) | payer MEDICARE, MEDICAID, SELFPAY | PROVIDERS: PCP Nurse Practitioner Family; Visit Provider Internal Medicine Cardiovascular Disease | DX: I12.9 Hypertensive chronic kidney disease with stage 1 through stage 4 chronic kidney disease, or unspecified chronic kidney disease (principal); N18.9 Chronic kidney disease, unspecified; I25.118 Atherosclerotic heart disease of native coronary artery with other forms of angina pectoris; E78.5 Hyperlipidemia, unspecified; E03.9 Hypothyroidism, unspecified; R06.00 Dyspnea, unspecified; F17.200 Nicotine dependence, unspecified, uncomplicated; R07.9 Chest pain, unspecified; R06.02 Shortness of breath | CPT/HCPCS: 93005; 99215 ==

== ENCOUNTER 2025-02-05 08:03 | Outpatient (CLI) | payer MEDICARE, SELFPAY ==
--- NOTE | 2025-02-05 | ECG_ITS ---
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 Interpretive Statements Lung unchanged pre/post procedure; Intraprocedure shortess of breath; Symptoms resoled by discharge PROCEDURE: At the baseline, the EKG revealed normal sinus rhythm with a poor R wave progression. Some baseline artifacts. The baseline heart was 60 bpm with a blood pressue of 131/78 mm of Hg Lexiscan was infused over a period of 20 seconds. A total of 0.4 milligrams of Lexiscan was infused. The stress phase was continued for a total of 5 minutes. Heart rate at the end of the stress phase was 78 bpm with a blood pressure 113/63 mm of Hg. The EKG at the peak infusion revealed some nonspecific T wave changes. Sestamibi was injected 20 seconds after the Lexiscan infusion. Heart rate at the end of the recovery phase was 74 bpm with a blood pressure of 114/62 mm of Hg. CONCLUSION: 1. No significant EKG changes with the LexiScan infusion 2. No LexiScan induced chest pain or cardiac arrhythmia 3. Normal blood pressure and heart rate response 4. Sestamibi/sestamibi perfusion scan pending; see separate report. Electronically Signed On 02-15-2025 10:46:08 CDT by Digna Jameson M.D. [id number] [id number]
--- NOTE | 2025-02-05 08:05 | NMCV_ITS ---
NM joseline perf SPECT r/s* [id number] Kim Carey Age: 74 Gender: F : 1950 Exam Date: 02/05/2025 09:26 Ordering Phys: Digna Jameson MD ([email or web address]) Technologist: JOY Higginbotham Exam Location: [facility] Indications: cp STRESS TEST Please see separate stress test report in [facility] for full findings IMAGE PROTOCOL Rest/Stress 1 Lexiscan Day Radiopharmaceutical Dose (mCi) Administration Site Administered by Rest: Tc-99m 10.8 IV JOY Higginbotham Sestamibi Stress:Tc-99m 32.4 IV Paty Harrell, LINER WORKER Sestamibi Rest: 05-Feb-2025 60 Discovery 630 Stress: 05-Feb-2025 30 Discovery 630 0.4mg Lexiscan. Images obtained in supine and prone position. SPECT RESULTS Technical Quality: Good Raw Data Analysis: Normal Image Corrections: No attenuation or motion correction applied Summed Stress Score: 0 Summed Rest Score: 1 Summed Difference Score: 0 PERFUSION FINDINGS SPECT images demonstrate homogeneous tracer distribution throughout the myocardium. FUNCTIONAL RESULTS (calculated via Gated SPECT) Stress Image LV EF (%): 74 Stress EDV (mL):66 TID: 0.94 Stress ESV (mL):17 FUNCTIONAL FINDINGS: There is normal left ventricular systolic function. IMPRESSIONS Myocardial perfusion imaging is normal. Sharyn Sanchez MD (Electronically Signed) Final Date: 07 Feb 2025 13:55 S
[2025-02-05 08:13] VITALS: BMI 27.3
[2025-02-05] MEDS: regadenoson 0.4 Mg/5 ml Syringe IVP (09:30)
[2025-02-05 09:42] VITALS: BP 114/62; PULSE 76
== END 2025-02-05 08:04 | disposition home or self-care (01) ==
LOC: CDL 08:04
PROVIDERS: PCP Nurse Practitioner Family; Visit Provider Internal Medicine Cardiovascular Disease
DX: R07.9 Chest pain, unspecified (principal); I25.118 Atherosclerotic heart disease of native coronary artery with other forms of angina pectoris
CPT/HCPCS: 36415; 78452; 93017; 96374; A9500; J2785

== ENCOUNTER → 2025-02-19 10:03 | Outpatient (BNVA) | payer MEDICARE, MEDICAID, SELFPAY | PROVIDERS: PCP Nurse Practitioner Family; Visit Provider Nurse Practitioner Family | DX: B07.8 Other viral warts (principal) | CPT/HCPCS: 99213 ==

== ENCOUNTER 2025-06-30 10:17 | Outpatient (CLI) | payer MEDICARE, SELFPAY ==
--- NOTE | 2025-06-30 10:27 | MM_ITS ---
WS: [id number] DIAGNOSTIC LEFT DIGITAL BREAST TOMOSYNTHESIS WITH CAD HISTORY: HX OF BREAST CA/ANNUAL MAMMO COMPARISON: 06/10/2024, 04/05/2023 Left craniocaudal, mediolateral oblique and medial lateral images are submitted with tomosynthesis and SM. Computer aided detection performed. Breast composition: The breasts are heterogeneously dense, which may obscure small masses. Scattered benign calcifications in the LEFT breast. No suspicious masses or distortion. No change in the LEFT breast parenchyma. MM/MM diag LT tomosynthesis [id number] IMPRESSION: BI-RADS: 2 - Benign FOLLOW UP: 1 Year Follow-up
== END 2025-06-30 10:18 | disposition home or self-care (01) ==
LOC: RAD 10:21
PROVIDERS: PCP Nurse Practitioner Family; Visit Provider Nurse Practitioner Family
DX: Z85.3 Personal history of malignant neoplasm of breast (principal); R92.333 Mammographic heterogeneous density, bilateral breasts; R92.1 Mammographic calcification found on diagnostic imaging of breast
CPT/HCPCS: 77061; G0279

== ENCOUNTER → 2025-07-30 09:43 | Outpatient (BNVA) | payer MEDICARE, MEDICAID, SELFPAY | PROVIDERS: PCP Nurse Practitioner Family; Visit Provider Internal Medicine Cardiovascular Disease | DX: I25.118 Atherosclerotic heart disease of native coronary artery with other forms of angina pectoris (principal); E78.5 Hyperlipidemia, unspecified; E03.9 Hypothyroidism, unspecified; I10 Essential (primary) hypertension; F17.200 Nicotine dependence, unspecified, uncomplicated; R06.09 Other forms of dyspnea | CPT/HCPCS: 99214 ==

== ENCOUNTER 2025-08-24 13:52 | Outpatient (CLI) | payer MEDICARE, SELFPAY ==
--- NOTE | 2025-08-24 14:00 | CT_ITS ---
WS: [email or web address] LDCT LUNG CANCER SCREENING HISTORY: NICOTINE DEPENDENCE,CIGARETTES TECHNIQUE: Axial imaging performed from the apices to 1 cm below the costophrenic angles. Coronal and sagittal reformats are submitted with axial MIP series. All CT scans at [facility] use at least one of these dose optimization techniques: automated exposure control; mA and/or kV adjustment per patient size (includes targeted exams where dose is matched to clinical indication); or iterative reconstruction. DLP: 44.32 mGy.cm DIvol: Mean CTDIvol: 1.00 (mGy) COMPARISON: None available. Diagnostic quality: Suboptimal evaluation due to breathing motion artifact and limited inspiration. Lungs: Diffuse hazy attenuation throughout both lungs. This is in part due to patient's known smoking history but also motion artifact. Hazy mild groundglass attenuation. Large nodules or masses are not evident. Small nodules would easily be obscured. Heart: Normal size heart with no pericardial effusion.. Other findings: Ectatic atherosclerosis aorta. No aneurysm. Small mediastinal and hilar lymph nodes. Incompletely visualized low-attenuation masses associated with each kidney. Most likely cyst but cannot be further evaluated. CT/CT lung screening [id number] IMPRESSION: LUNG-RADS: 2-Benign Appearance or Behavior FOLLOW UP: 12 Month: Continue annual screening with LDCT OTHER FINDINGS (S MODIFIER): None.
== END 2025-08-24 13:53 | disposition home or self-care (01) ==
LOC: RAD 13:53
PROVIDERS: PCP Nurse Practitioner Family; Visit Provider Nurse Practitioner Family
DX: Z12.2 Encounter for screening for malignant neoplasm of respiratory organs (principal); F17.210 Nicotine dependence, cigarettes, uncomplicated; J98.4 Other disorders of lung; I70.0 Atherosclerosis of aorta; R59.0 Localized enlarged lymph nodes; N28.89 Other specified disorders of kidney and ureter
CPT/HCPCS: 71271